=== PATIENT | female | born 1970 | race Caucasian/White ===

== ENCOUNTER 2021-01-11 22:31 | Emergency (ER) | payer BC, SELFPAY ==
--- NOTE | 2021-01-11 22:38 | XR_ITS ---
PROCEDURE INFORMATION: Exam: XR Chest Exam date and time: 01/11/2021 10:38 PM Age: 50 years old Clinical indication: Patient HX: Productive cough, nonsmoker TECHNIQUE: Imaging protocol: XR of the chest. Views: 1 view. Total images: 1 COMPARISON: CR CXR CHEST(2 VIEWS-NOT PORTABLE) 06/29/2015 11:10 AM FINDINGS: Lungs: Normal pulmonary expansion. Pulmonary vasculature grossly normal. Patchy airspace disease in the left mid to basilar region concerning for pneumonia versus atelectasis. Pleural spaces: No pleural effusion. No pneumothorax. Heart/Mediastinum: Heart size normal. No tracheal/mediastinal shift. Bones/joints: No acute osseous abnormalities are identified. Chronic healed left clavicle fracture. IMPRESSION: Patchy pneumonia or atelectasis in the left mid to basilar region.
[2021-01-11 22:39] VITALS: BP 129/65; PULSE 105; RESP 17; TEMP 37.9; O2SAT 98; BMI 34.9
--- NOTE | 2021-01-11 22:39 | HMH.EDGENADL ---
ED Disposition Clinical Impression: Pneumonia Qualifiers: Pneumonia type: due to unspecified organism Laterality: left Lung location: lower lobe of lung Qualified Code(s): J18.9 - Pneumonia, unspecified organism Disposition: Home, Self-Care Condition on Discharge: Fair Instructions: DI for Pneumonia -- Adult Additional Instructions: You have been evaluated for cough. Diagnosed with pneumonia. Pneumonia is on the left side. Please sitting taking Levaquin as prescribed. Take Tylenol and Motrin for pain and fever. Follow-up with your primary care doctor. Return to the emergency department for any new or worsening symptoms, difficulty breathing or other concerns. Prescriptions: predniSONE [Prednisone 20mg Tab] 20 mg PO BID #10 tab Transmission Status: Pending to [facility]/pharmacy #[id number] Referrals: Kathleen Meredith APRN [Primary Care Provider] - Time of Disposition: 00:46 - Critical Care Critical Care Time: No Attestation: On , the high probability of a clinically significant, sudden or life threatening deterioration of the following system(s) required my full and direct attention, intervention and personal management. The time I documented below is in addition to time spent performing reported procedures but includes the following listed in this critical care notation. Medical Decision Making - Medical Records Medical records reviewed: Yes: I reviewed the patient's medical records. - Dayron Inquiry Pt receiving controlled substance: No Vital Signs: 01/11/21 22:39 Temperature 100.2 F H Temperature Source Oral Pulse Rate [Right Brachial] 105 H Respiratory Rate 17 Blood Pressure [Right Arm] 129/65 Blood Pressure Mean [Right Arm] 86 Blood Pressure Source [Right Arm] Automatic Cuff Blood Pressure Position [Right Arm] Sitting 02 Sat by Pulse Oximetry 98 Oxygen Delivery Method Room Air - Lab Data Lab Results 01/12/21 00:20: WBC 10.4, RBC 4.62, Hgb 13.3, Hct 40.8, MCV 88.4, MCH 28.8, MCHC 32.5, RDW 14.1, Plt Count 281, MPV 7.9, Neut % (Auto) 88.9 H, Lymph % (Auto) 5.6 L, O'Brien % (Auto) 3.2, Eos % (Auto) 1.4, Baso % (Auto) 0.9, Neut # (Auto) 9.2 H, Lymph # (Auto) 0.6 L, O'Brien # (Auto) 0.3, Eos # (Auto) 0.2, Baso # (Auto) 0.1, Total Counted 100, Neutrophils % (Manual) 82 H, Band Neutrophils % 10.0 H, Lymphocytes % (Manual) 7 L, Monocytes % (Manual) 1 L, Platelet Estimate Normal, RBC Morphology Normal 01/12/21 00:20: Sodium 138, Potassium 3.3 L, Chloride 99, Carbon Dioxide 28, Anion Gap 14.3, BUN 16, Creatinine 0.90, Estimated Creat Clear 97, Estimated GFR 66, Est GFR ( Amer) 80, Glucose 110 H, Calcium 9.0, Total Bilirubin 0.6, AST 47 H, ALT 27, Alkaline Phosphatase 107, Total Protein 8.3 H, Albumin 4.6, Globulin 3.7 H, Albumin/Globulin Ratio 1.2 Result diagrams: 01/12/21 00:20 01/12/21 00:20 Orders (Tests/Meds): ED MEDICATIONS Discontinued Medications Generic Name Dose Route Start Last Admin Trade Name Freq PRN Reason Stop Dose Admin Acetaminophen 650 mg 01/12/21 00:46 01/12/21 00:50 Acetaminophen 325mg Tab PO 01/12/21 00:47 650 mg ONCE ONE Administration ORDERS Category Date Time Status Rapid PCR Covid and Flu A/B Stat Lab 01/11/21 00:20 Received Medical Decision Narrative: In summary this is a 50-year-old female with history of asthma presenting to the emergency department with cough and chest congestion. Patient clinically stable on arrival. Vital signs within normal limits. Concern for bronchitis, pneumonia, COVID-19. Will obtain CBC, CMP, chest x-ray, COVID test. X-ray concerning for patchy pneumonia in the left mid and lower lung. Laboratory results reassuring. On reassessment patient remains clinically stable in the emergency department. No hypoxia. Counseled to continue taking Levaquin as prescribed. Follow-up with PCP for clearance. Stable for discharge. General Adult HPI - General Stated complaint: SOB Upper Resp congestion Time Seen by Provider
[2021-01-12 00:32] LABS: Coronavirus 19, PCR Not Detected (NotDetected); Influenza A, PCR Not Detected (NotDetected); Influenza B, PCR Not Detected (NotDetected)
[2021-01-12 00:34] LABS: Basophils # 0.1 K/mm3 (0-0.2); Basophils % 0.9 % (0.1-2.0); Eosinophils # 0.2 K/mm3 (0.0-0.4); Eosinophils % 1.4 % (0.1-12.0); Hematocrit 40.8 % (37.0-47.0); Hemoglobin 13.3 g/dL (12.2-16.2); Lymphocytes # 0.6 K/mm3 (0.7-4.5); Lymphocytes % 5.6 % (10-50); Mean Corpuscular HGB Conc 32.5 g/dL (31.8-35.4); Mean Corpuscular Hemoglobin 28.8 pg (27.0-31.2); Mean Corpuscular Volume 88.4 fl (81-99); Mean Platelet Volume 7.9 fl (7.4-10.4); Monocytes # 0.3 K/mm3 (0.1-1.0); Monocytes % 3.2 % (1.7-9.3); Neutrophils # 9.2 K/mm3 (1.8-7.8); Neutrophils % 88.9 % (37.0-80.0); Platelet Count 281 K/mm3 (142-424); Red Blood Count 4.62 M/mm3 (4.20-5.40); Red Cell Distribution Width 14.1 % (11.5-17.5); White Blood Count 10.4 K/mm3 (4.8-10.8)
[2021-01-12 00:39] LABS: Chloride 99 mmol/L (98-107); Sodium 138 mmol/L (136-145)
[2021-01-12 00:40] LABS: MANUAL DIFFERENTIAL MANUAL DIFFERENTIAL (MANUAL DIFF); Potassium 3.3 mmoL/L (3.5-5.1)
[2021-01-12 00:42] LABS: Alanine Aminotransferase 27 U/L (12-78); Alkaline Phosphatase 107 U/L (38-126); Anion Gap 14.3 mEq/L (5-15); Aspartate Amino Transferase 47 U/L (14-36); Bilirubin,Total 0.6 mg/dl (0.2-1.3); Blood Urea Nitrogen 16 mg/dl (7-17); Carbon Dioxide 28 mmol/L (22.0-30.0); Creatinine Clearance Estimated 97 mL/min (50-200); Estimated Glomerular Filt Rate 66 ml/min (>60); GFR (African American) 80 ML/MIN (>60)
[2021-01-12 00:43] LABS: Albumin Level 4.6 g/dl (3.5-5.0); Albumin/Globulin Ratio 1.2 (1.1-1.8); Globulin 3.7 g/dL (1.3-3.2); Glucose 110 mg/dl (74-100); Total Protein,Serum 8.3 g/dl (6.3-8.2)
[2021-01-12 00:47] LABS: Lymphocytes % 7 % (10-50); Monocytes % 1 % (2-9); Neutrophils % 82 % (42-76); Total Cells Counted 100
[2021-01-12 00:48] LABS: Platelet Estimate Normal; RBC Morphology Normal
[2021-01-12 01:26] VITALS: BP 120/73; PULSE 95; RESP 16; TEMP 37.2; O2SAT 98
== END 2021-01-12 01:27 | disposition home or self-care (01) ==
PROVIDERS: Emergency Provider Emergency Medicine; PCP Nurse Practitioner
DX: J18.9 Pneumonia, unspecified organism (principal)
CPT/HCPCS: 71045; 80053; 85007; 85025; 99283; J2405; U0003

== ENCOUNTER → 2021-08-01 08:27 | Outpatient (CLI) | payer BC, SELFPAY ==
--- NOTE | 2021-08-01 08:28 | MM_ITS ---
PROCEDURE INFORMATION: Exam: MG Bilateral Screening 3D Mammography Exam date and time: 08/01/2021 8:28 AM Age: 51 years old Clinical indication: Screening mammogram TECHNIQUE: Imaging protocol: Bilateral Screening tomosynthesis and 2D mammography including computer-aided detection (CAD) when performed. COMPARISON: 1. MG DMDXUAVR DIG MAMM-DX UNI A/VW-RT W/CAD 01/13/2017 1:12 PM 2. MG DMSB DIG MAMM-SCREEN MARYCRUZ W/CAD 01/05/2017 9:59 AM 3. MG DMDXUL DIG MAMM-DX UNI-LT 03/01/2015 3:18 PM 4. MG DMDXUAVL DIG MAMM-DX UNI ADD VIEWS-LT 08/11/2014 1:17 PM FINDINGS: MAMMOGRAPHY: Breast composition: There are scattered areas of fibroglandular density. Mass: None. Architectural distortion: No new or suspicious architectural distortion. Calcifications: No new or suspicious calcifications are present Asymmetric density: No new or suspicious asymmetric density is present Skin thickening: None. Axillary adenopathy: None. IMPRESSION: No mammographic evidence of malignancy. Recommend annual screening mammography unless otherwise clinically indicated. ASSESSMENT: BI-RADS category 1: Negative
[2021-08-01 09:14] LABS: Basophils % 0.5 % (0.1-2.0); Eosinophils # 0.1 K/mm3 (0.0-0.4); Eosinophils % 2.5 % (0.1-12.0); Hematocrit 37.4 % (37.0-47.0); Lymphocytes # 1.2 K/mm3 (0.7-4.5); Lymphocytes % 21.8 % (10-50); Mean Corpuscular HGB Conc 32.1 g/dL (31.8-35.4); Mean Corpuscular Hemoglobin 28.5 pg (27.0-31.2); Mean Corpuscular Volume 88.8 fl (81-99); Mean Platelet Volume 7.5 fl (7.4-10.4); Monocytes # 0.2 K/mm3 (0.1-1.0); Monocytes % 4.4 % (1.7-9.3); Neutrophils # 3.8 K/mm3 (1.8-7.8); Neutrophils % 70.9 % (37.0-80.0); Platelet Count 321 K/mm3 (142-424); Red Blood Count 4.22 M/mm3 (4.20-5.40); Red Cell Distribution Width 12.9 % (11.5-17.5); White Blood Count 5.3 K/mm3 (4.8-10.8)
[2021-08-01 10:03] LABS: Chloride 104 mmol/L (98-107); Sodium 135 mmol/L (136-145)
[2021-08-01 10:05] LABS: Blood Urea Nitrogen 19 mg/dl (7-17); Estimated Glomerular Filt Rate 75 ml/min (>60); GFR (African American) 91 ML/MIN (>60)
[2021-08-01 10:06] LABS: Alanine Aminotransferase 14 U/L (12-78); Alkaline Phosphatase 104 U/L (38-126); Aspartate Amino Transferase 28 U/L (14-36); Bilirubin,Total 0.4 mg/dl (0.2-1.3); Calcium 8.1 mg/dl (8.4-10.2); Carbon Dioxide 27 mmol/L (22.0-30.0); Glucose 95 mg/dl (74-100); HDL Cholesterol 45 mg/dl (40-60); Total Protein,Serum 6.8 g/dl (6.3-8.2); Triglycerides 71 mg/dl (30-150); VLDL Cholesterol 14 mg/dL (0-40)
[2021-08-01 10:22] LABS: Triiodothryronine (T3) Uptake 29 % (23.5-40.5)
[2021-08-01 10:23] LABS: Free Thyroxine Index 2.4 ug/dL (5.93-13.13); T4 (Thyroxine) 8.4 ug/dl (5.53-11.0)
[2021-08-01 10:36] LABS: Thyroid Stimulating Hormone 1.89 uIU/mL (0.465-4.68)
[2021-08-01 11:43] LABS: Albumin Level 3.9 g/dl (3.5-5.0); Albumin/Globulin Ratio 1.3 (1.1-1.8); Chol/HDL Ratio 3.4 (1-3.5); Cholesterol 155 mg/dl (140-200); Globulin 2.9 g/dL (1.3-3.2)
[2021-08-02 13:19] LABS: Estradiol 26.7 pg/mL (.); FSH 61.4 mIU/mL (.); LH 44.3 mIU/mL (.)
== END ==
PROVIDERS: PCP Pediatrics; Visit Provider Nurse Practitioner Obstetrics & Gynecology
DX: Z01.419 Encounter for gynecological examination (general) (routine) without abnormal findings (principal); Z12.31 Encounter for screening mammogram for malignant neoplasm of breast; R53.82 Chronic fatigue, unspecified
CPT/HCPCS: 36415; 77063; 77067; 80053; 80061; 82670; 83001; 83002; 84436; 84443; 84479; 85025

== ENCOUNTER → 2021-09-25 09:46 | Outpatient (CLI) | payer BC, SELFPAY ==
[2021-09-25 10:19] LABS: Basophils # 0.1 K/mm3 (0-0.2); Eosinophils # 0.1 K/mm3 (0.0-0.4); Eosinophils % 1.4 % (0.1-12.0); Hematocrit 35.3 % (37.0-47.0); Hemoglobin 11.4 g/dL (12.2-16.2); Lymphocytes # 1.5 K/mm3 (0.7-4.5); Lymphocytes % 20.2 % (10-50); Mean Corpuscular HGB Conc 32.4 g/dL (31.8-35.4); Mean Corpuscular Hemoglobin 28.1 pg (27.0-31.2); Mean Corpuscular Volume 86.8 fl (81-99); Mean Platelet Volume 7.9 fl (7.4-10.4); Monocytes # 0.4 K/mm3 (0.1-1.0); Monocytes % 4.7 % (1.7-9.3); Neutrophils # 5.5 K/mm3 (1.8-7.8); Neutrophils % 72.7 % (37.0-80.0); Platelet Count 299 K/mm3 (142-424); Red Blood Count 4.07 M/mm3 (4.20-5.40); Red Cell Distribution Width 15.8 % (11.5-17.5); White Blood Count 7.6 K/mm3 (4.8-10.8)
[2021-09-25 10:38] LABS: Chloride 107 mmol/L (98-107); Potassium 4.3 mmoL/L (3.5-5.1)
[2021-09-25 10:39] LABS: Sodium 139 mmol/L (136-145)
[2021-09-25 10:41] LABS: Blood Urea Nitrogen 21 mg/dl (7-17); Estimated Glomerular Filt Rate 47 ml/min (>60); GFR (African American) 57 ML/MIN (>60)
[2021-09-25 10:42] LABS: Glucose 95 mg/dl (74-100)
[2021-09-25 10:43] LABS: Anion Gap 9.3 mEq/L (5-15); Calcium 8.5 mg/dl (8.4-10.2); Carbon Dioxide 27 mmol/L (22.0-30.0)
== END ==
PROVIDERS: Visit Provider Nurse Practitioner Obstetrics & Gynecology
DX: Z01.818 Encounter for other preprocedural examination (principal); Z11.52 Encounter for screening for COVID-19; R87.619 Unspecified abnormal cytological findings in specimens from cervix uteri
CPT/HCPCS: 36415; 80048; 85025; C9803; U0003; U0005

== ENCOUNTER 2021-09-27 06:07 | Day surgery (SDC) | payer BC, SELFPAY ==
[2021-09-25 09:18] VITALS: BMI 33.1
[2021-09-27] VITALS (13 sets, daily range): BP systolic 111–134; BP diastolic 66–92; PULSE 72–124; RESP 16–22; TEMP 36.2–36.8; O2SAT 95–100
--- NOTE | 2021-09-27 07:10 | P.PN_ITS ---
[facility] Anesthesia Checklist - Patient Identification Patient Identification: Arm Band - Structural Data Admitted From: Home Planned Operative Procedure/s: Hyst/D & C Consent for Planned Operative Procedure(s) Verified: Yes - NPO Status Verified Time NPO: 00:00 - Additional verifications Anesthesia Reactions: No (nausea) Hx Blood Transfusions: No Blood Transfusion Reaction: No - Airway Assessment C-Spine Mobility Assessed: Yes TMJ Mobility Assessed: Yes Dentition: Dentures-good fit - Neurological Assessment Level of Consciousness: Awake Hx Seizures: No Numbness or tingling in extremities: No - Anesthesia Plan Anesthesia Risk discussed: Yes Anesthesia Plan: Verified ASA Class: II Anesthesia Type: General [facility] History I have reviewed the patient's past medical history: Yes Medical History: Reports:: Diabetes Mellitus Type 2, Hypertension Denies:: Cancer, Diabetes Mellitus Type 1, Internal Pacemaker, MRSA, Seizures *Have you ever received a pneumonia vaccine?: No *Have you received a flu vaccine this season?: No Other Medical History: Denies: Blood Transfusion Reaction Anesthesia experience/problems:: PONV Laterality Cases: Bilateral: Carpal Tunnel Release Other Surgeries: Yes: Other. No: Pacemaker Amputation: No Fractures: No - *Social History Last grade of school completed: High school graduate Smoking Status: Never smoker Alcohol Intake: never Substance Use Type: denies use *Occupational Status:: employed Housing: house Household Members: spouse, family *Travel in the last 8 weeks: None Family Hx:: No significant family history
--- NOTE | 2021-09-27 08:11 | P.OP_ITS ---
Date of procedure: 09/27/21 Pre-op Diagnosis:: Atypical glandular cells Post-op Diagnosis:: Atypical glandular cells Procedure performed:: Hysteroscopy, dilation and curettage, endocervical curettage, cone biopsy Surgeon:: Jeffrey Ramirez MD CASSEROLE PREPARER:: Prashant Fleming Anesthesia: LMA Estimated blood loss (mL): 50 Clinical Note:: She is a 51-year-old lady who had a recent Pap smear that showed atypical glandular cells. As result of that she was offered cone biopsy, D&C, endocervical curettage and hysteroscopy. Operative findings:: She had an anteverted uterus that had an atrophic appearing endometrial cavity. Both tubal ostia were seen and appeared normal. There were no obvious lesions on the cervix. Operative note:: She was taken the operating room where LMA anesthesia was found be adequate. She is prepped draped normal sterile fashion lithotomy position. Weighted speculum is placed in the vagina and the antilipid the cervix was grasped with a tenaculum. The cervix was grasped with a single-tooth tenaculum and the cervix was dilated to approximately 7 mm. We then inserted a hysteroscope into the uterine cavity and the findings were as previously dictated. I then performed a gentle curettage. This was followed by an endocervical curettage with a small curette. I then injected approximately 20 cc of 1% Xylocaine with epinephrine circumferentially about the cervix. I then made a circular incision about the cervical os approximately 1-1/2 cm wide. I then removed a cylindrical piece of tissue from the cervix. This was sent to pathology. I then used interrupted 2-0 Vicryl suture from outside insight inside outside in for corners around the cervix for hemostasis. I then placed a small amount of Monsel's solution into the cervical defect. She tolerated procedure well and was taken to recovery room in excellent condition. All sponge, instrument and needle counts were correct. The estimated blood loss was approximately 50 cc. Condition: stable Disposition: PACU Specimens:: Endometrial curettings, endocervical curettings, cone biopsy Complications:: None
--- NOTE | 2021-09-27 08:17 | P.PN_ITS ---
[facility] Anesthesia Record Part I Intake, IV Amount: 500 Estimated blood loss (mL): 50 Urine output (mL): 0 Blood Pressure: 133/92 SaO2: 100 Pulse Rate: 124 Respiratory Rate: 21 Temperature: 98 F Patient is:: Drowsy Stable to PACU at:: 08:13
[2021-09-27 08:36] LABS: POC Glucose,Bedside 114 (70-110)
--- NOTE | 2021-09-30 07:18 | HMH.ANESII ---
[facility] Anesthesia Record Part II Discharge Time: 08:50 Destination: Surgical Day Care (OP Surgery) PACU nurse assessment reviewed?: Yes Patient Condition:: Good Anesthesia Complications:: None Swallowing reflex intact?: Yes Cyanosis?: No Blood Pressure: 125/71 Pulse Rate: 97 Temperature: 98.2 F Mental Status: Alert & Oriented Pain level:: 7 Nausea and/or vomitting:: None Intake, IV Amount: 0
[2021-09-30 07:19] VITALS: BP 125/71; PULSE 97; TEMP 36.8
[2022-03-13 10:59] LABS: POC Glucose,Bedside 79 (70-110)
== END 2021-09-27 09:50 | disposition home or self-care (01) ==
LOC: OR 06:08
PROVIDERS: PCP Pediatrics; Visit Provider Nurse Practitioner Obstetrics & Gynecology
PROC: 0UDB8ZZ Extraction of Endometrium, Via Natural or Artificial Opening Endoscopic (ICD-10-PCS; CPT 58558; principal; 2021-09-27 07:30)
DX: R87.618 Other abnormal cytological findings on specimens from cervix uteri (principal); E11.9 Type 2 diabetes mellitus without complications; I10 Essential (primary) hypertension; Z79.899 Other long term (current) drug therapy
CPT/HCPCS: 57520; 82962; 96374; J2405

== ENCOUNTER 2025-01-22 19:57 | Emergency (ER) | payer BC, SELFPAY ==
--- OUTSIDE RECORDS SUMMARY | 2021-11-20 08:16 | XMS_ITS | Continuity of Care Document ---
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 Name Role Phone Toy Mcgowan MD Unavailable Unavailable Allergies, Adverse Reactions, Alerts Substance Reaction Status Criticality No Known Allergies Active No Inform ation Medications Medication Instructions Dosage Effective Dates (start - stop) Status Comments cyclobenzaprine 10 mg tablet take 1 tablet by oral route 3 times every day 10 MG - Active Medrol (Ludwin) 4 mg tablets in a dose pack Per package instructions - Active oxaprozin 600 mg tablet - Active loratadine 10 mg tablet - Active omeprazole 40 mg capsule,delayed release - Active estradiol 1 mg tablet - Active Orsythia 0.1 mg-20 mcg tablet - Active triamterene 37.5 mg-hydrochlorothiazide 25 mg capsule - Active metformin 500 mg tablet - Active Procedures Procedure Date Office/outpatient visit,est, mod 2021 X-ray exam lwr spine, min 4 views Njx interlaminar lmbr/sac Methylprednisolone 40 MG inj Inject, spine, lumbar/sacral Fluoroscopic Guidance, Spine Injection D Methylprednisolone 40 MG inj Inject foramin, lumb/sacral, single Methylprednisolone 40 MG inj LOCM 300-399MG/ML IODINE,1ML Inject foramin, lumb/sacral, single Methylprednisolone 40 MG inj LOCM 300-399MG/ML IODINE,1ML Office/outpatient visit,est, mod 2015 Office consultation, moderate 6 Inject foramin, lumb/sacral, single Methylprednisolone 40 MG inj LOCM 300-399MG/ML IODINE,1ML Office/outpatient visit,est, mod 2015 Office/outpatient visit,est, mod 2015 Office/outpatient visit,est, mod 2015 X-ray exam lwr spine, min 4 views Advance Directives Directive Yes / No Effective Date File Name No Information Encounters Encounter Description Practice Location Reason(s) For Visit Diagnoses Date Provider Providers Copied on Encounter [facility] [address], [facility], tel:[phone] [facility] No Information 2 Juan M Yeager. [address] [place], [place], [facility], . tel:[phone] Referring Provider: Margarito Fry, [address] [place] [address], [facility]. tel:[phone] Office/outpa tient visit,est, mod [facility] [address], [facility] [place], tel:[phone] [address] [place] [address] Radiculopathy, cervical regionOther intervertebral disc degeneration, lumbosacral region 2 Juan M Yeager. [address] [place], [place], [facility], . tel:[phone] Referring Provider: Margarito Fry, [address] [place] [address], [facility]. tel:[phone] [facility] [address], [facility] [place], tel:[phone] [address] [place] [address] No Information 7 Gregorio Rankin. [address] [place], [address], [place]. tel:[phone] [facility], [address] [place] [address], [facility], tel:[phone] [facility] No Information 6 Kruer Chucho. [address] [place], [address], [place]. tel:[phone] [facility] [address], [facility] [place], tel:[phone] [facility] No Information 6 Kruer Chucho. [address] [place], [address], [place]. tel:[phone] [facility], [address] [place] [address], [facility], tel:[phone] [address] [place] [address] No Information 6 Kruer Chucho. [address] [place], [address], [place]. tel:[phone] Office/outpa tient visit,est, mod [facility] [address], [facility] [place], [place] tel:[phone] [address] [place] [address] No Information 6 Kruer Chucho. [address] [place], [address], [place]. tel:[phone] Office consultation , moderate [facility] [address], [facility], tel:[phone] [address] [place] [address] lumbar spine (chief complaint) Low back painRadiculopa thy, lumbar regionInterver tebral disc disorder w/ radiculopathy of lumbar region 6 Kruer Chucho. [address] [place], [address], [place]. tel:[phone] Referring Provider: Margarito Fry, [address], [place], [facility]. tel:[phone] Office/outpa tient visit,est, mod [facility], [address] [place] [address], [facility], tel:[phone] [facility] No Information 3 6 Hong Pimentel. [address] [place], [place], [facility], . tel:[phone] Referring Provider: Toy Mcgowan, [address] [place], [place], [facility]. tel:[phone] [facility]outpa [facility]ient visit,est, mod [facility], [address] [place] [address], [facility], tel:[phone] [facility] No Information 1 0 6 Juan M Yeager. [address] [place] [address], [facility], . tel:[phone] Office/outpa tient visit,[facility], [address] [place] [address], [facility], tel:[phone] [address] [place] [address] No Information 0 3 6 Juan M Yeager. [address] [place] [address], [facility], . tel:[phone] Family History Family Member Type Diagnosis Age At Onset Brother Problem (finding) Family history of Hyper lipidemia Brother Problem (finding) Hypertension Problem (finding) Family history of diabe lesli Mother Problem (finding) Family history of Glauc kari Problem (finding) Family history of Thyro id disorder Problem (finding) Family history of Cance r, unknown Father Problem (finding) Cancer Problem (finding) Family history of glauc kari Problem (finding) Family history of hyper tension Problem (finding) Family history of Heart disease Payers Payer name Insurance type Covered green party ID Authoriza tion(s) No Information Social History Type Description Quantity Date Captured Comments Sex Female Smoking Status No Information Chief Complaint And Reason For Visit No Information Reason For Referral Reason For Referral No Information Plan Of Treatment Date Type Action Status Future Order: Radiology Order MR I Lumbar Spine WO Contrast ([id number]), Ordered on: Ordered Future Order: Radiology Order MR I Cervical Spine WO Contrast ([id number]), Ordered on: Ordered Future Order: Radiology Order MR I Lumbar Spine W/WO Contrast ([id number]), Sent on: Sent History Of Present Illness Encounter Date Complaint History Of Prese nt Illness lumbar spine Functional Status Date Functional Assessmen t No Information Instructions Date Instruction Additional Infor mation No Information Assessments Type Assessment Date No Information Patient Care Teams Name Effective Dates (start - stop) Status Members No Information
--- OUTSIDE RECORDS SUMMARY | 2025-01-16 11:00 | XMS_ITS | Encounter Summary ---
Author Organization [place] [address] Care Team Providers Care Hotel Maid Name Role Phone Julian Cam MD Primary Care Provider [phone] Nicolas Nagel MD Unavailable [phone] Reason for Referral * MRI/CAT Scan (Routine) - Pending Review Specialty Diagnoses / Procedures Referred By Contac t Referred To Contact Radiology Diagnoses Lumbar spondylosis Vertebrogenic pain Procedures MRI LUMBAR SPINE WO CONTRAST INTRACEPT CANDIDATE Coty Arechiga APRN [address] [place] [address] Phone: tel: fax: Referral ID Status Reason Start Date Expiration Date V isits Requested Visits Authorized [id number] Pending Review 01/16/2025 01/16/2026 1 1 Reason for Visit * Reason Comments Follow-up Back Pain lower Encounter Details Date Type Department Care Team (Latest Contact Info) Description 01/16/2025 11:00 AM EDT Office Visit [facility] [address] [place] [address] Coty Arechiga APRN [address] [phone] Vertebrogenic pain (Primary Dx); Lumbar spondylosis Social History Tobacco Use Types Packs/Day Years Used Date Smoking Tobacco: Never Smokeless Tobacco: Never Tobacco Cessation:Counseling Given: Not Answered Alcohol Use Standard Drinks/Week Comments No 0 (1 standard drink = 0.6 oz pur e alcohol) Overall Financial Resource Strain (CARDIA) Answe r Date Recorded How hard is it for you to pa y for the very basics like food, housing, medical care, and heating? Not very hard 08/27/2022 PHQ-2 Answer Date Recorded PHQ-2 Total Score 0 02/09/2024 [facility] - Occupational Stress Questionnaire Answer Date Recorded Do you feel stress - tense, restless, nervous, or anxious, or unable to sleep at night because your mind is troubled all the time - these days? Only a little 08/27/2022 Exercise Vital Sign Answer Date Recorde d On average, how many days pe r week do you engage in moderate to strenuous exercise (like a brisk walk)? 0 days 08/27/2022 On average, how many minutes do you engage in exercise at this level? 0 min 08/27/2022 Hunger Vital Sign Answer Date Recorded Within the past 12 months, y ou worried that your food would run out before you got the money to buy more. Never true 08/28/19 23 Within the past 12 months, t he food you bought just didn't last and you didn't have money to get more. Never true 08/27/2022 PRAPARE - Transportation Answer Date Re corded In the past 12 months, has l ack of transportation kept you from medical appointments or from getting medications? No 08/13 In the past 12 months, has l ack of transportation kept you from meetings, work, or from getting things needed for daily living? No 08/27/2022 Housing Stability Vital Sign Answer Efren e Recorded In the last 12 months, was t here a time when you were not able to pay the mortgage or rent on time? No 08/27/2022 In the last 12 months, how many places have you lived? 1 08/27/2022 In the last 12 months, was t here a time when you did not have a steady place to sleep or slept in a senior care (including now)? No 08/27/2022 Sexually Active Control Partners Comments Not Currently Comments No Sex and Gender Information Value Date Recorded Sex Assigned at Not on file Legal Sex Female 10:01 PM EDT Gender Identity Not on file Sexual Orientation Not on file documented as of this encounter Last Filed Vital Signs Vital Sign Reading Time Taken Comments Blood Pressure - - Pulse 95 01/16/2025 10:59 AM EDT Temperature - - Respiratory Rate - - Oxygen Saturation 97% 01/16/2025 10:59 AM EDT Inhaled Oxygen Concentration - - Weight 75.8 kg (167 lb) 01/16/2025 10:59 AM EDT Height - - Body Mass Index 34.9 08/12/2024 1:37 PM EST documented in this encounter Functional Status * Is the person deaf or does he/she have serious difficulty hearing? Answer Date of Assessment Author No 09/09/2022 1:56 PM EDT Kathryn Morton CCMA * Is the person blind or does he/she have serious difficulty seeing even when wearing glasses? Answer Date of Assessment Author No 09/09/2022 1:56 PM EDT Kathryn Morton CCMA * Does this person have serious difficulty walking or climbing stairs? Answer Date of Assessment Author No 09/09/2022 1:56 PM EDT Kathryn Morton CCMA * Does this person have difficulty dressing or bathing? Answer Date of Assessment Author No 09/09/2022 1:56 PM EDT Katelynn Morton CCMA * Because of a physical, mental or emotional condition, does this person have difficulty doing errands alone such as visiting a doctor's office or shopping? Answer Date of Assessment Author No 09/09/2022 1:56 PM EDT Kathryn Morton CCMA documented as of this encounter Mental Status * Because of a physical, mental or emotional condition, does this person have serious difficulty concentrating, remembering or making decisions? Answer Entry Date Author No 09/09/2022 1:56 PM Kathryn Skelton CCMA documented in this encounter Ordered Prescriptions Prescription Sig Dispense Quantity Refills Last Filled Start Date End Date diclofenac (VOLTAREN) 75 mg Oral Tablet, Delayed Release (E.C.) Take 1 Tablet by mouth 2 times daily as needed for Pain for up to 30 days. 60 Tablet 2 01/16/2025 02/15/2025 documented in this encounter Progress Notes * Coty ArechigaOLGA - 01/16/2025 11:00 AM EDT Images from the original note were not included. Subjective Subjective: Patient ID: Maite Loco is a 54 y.o. female who presents today for Chief Complaint Patient presents with Follow-up Back Pain lower HPI: Maite Loco is a 54 y.o. female who presents for follow-up evaluation regarding their pain. Symptoms are better since last visit. Since last visit, the patient underwent Lumbar medial branch radiofrequency ablation (RFA). No relief for 4-5 weeks. Now with about 25%. Has SCS implanted 10/2023 which does help and plans to contact [facility] for adjustment. 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 Her pain is located in her low back and radiating into bilateral buttock. Worsening with bending, twisting, prolonged standing. H/O L5-S1 laminectomy in 2012. She started mobic without any relief, taking tylenol prn Characterization of Primary Pain: Location of Pain: Low-back - bilateral and Buttock - bilateral Pain Ratin/10 on NRS Quality: aching and throbbing Temporal Profile: constant with intermittent exacerbations Referral Pattern: Pain radiates to the right and left buttocks Exacerbating Factors: increased activity, activities of daily living, prolonged standing, and walking Relieving Factors: rest and injections SCS Associated Symptoms: Patient denies any red flag symptoms such as urinary/bowel incontinence, progressive weakness in the extremities, and/or saddle anesthesia. The patient's current medication regimen does not relieve their pain. No apparent side effects are noted with current medication regimen. Review of Systems Constitutional: Positive for activity change, chills and fatigue. Negative for appetite change, diaphoresis and fever. HENT: Positive for dental problem, ear discharge, ear pain, hearing loss, mouth sores and trouble swallowing. Negative for congestion, drooling, facial swelling, nosebleeds, postnasal drip, rhinorrhea, sinus pressure, sore throat, tinnitus and voice change. Respiratory: Negative for cough, chest tightness, shortness of breath and wheezing. Cardiovascular: Positive for palpitations. Negative for chest pain and leg swelling. Gastrointestinal: Positive for abdominal pain and diarrhea. Negative for constipation, nausea and vomiting. Endocrine: Negative for polydipsia. Genitourinary: Positive for flank pain, frequency and urgency. Negative for dysuria and hematuria. Musculoskeletal: Positive for back pain, joint swelling, myalgias and neck pain. Skin: Negative for color change and rash. Allergic/Immunologic: Positive for environmental allergies. Neurological: Positive for dizziness, tremors, weakness and numbness. Negative for speech difficulty and headaches. Hematological: Bruises/bleeds easily. Psychiatric/Behavioral: Positive for dysphoric mood. Negative for hallucinations, sleep disturbanceand suicidal ideas. The patient is nervous/anxious. All other systems reviewed and are negative. Past Medical History: Diagnosis Date Allergic rhinitis, cause unspecified Anemia Asthma no inhaler Chronic kidney disease Dietary counseling and surveillance 04/23/2022 Gall bladder stones GERD (gastroesophageal reflux disease) Heart murmur Heartburn History of chicken pox Hyperlipidemia Hypertension Irritable bowel syndrome Kidney stones Leg cramps Motion sickness Osteoarthrosis, unspecified whether generalized or localized, unspecified site hands, knees, back Overweight Postoperative nausea and vomiting Snoring Swelling of both hands Swelling of lower extremity Past Surgical History: Procedure Laterality Date BLADDER SURGERY bladder sling CARPAL TUNNEL RELEASE Bilateral 12/14/2018 BILATERAL CARPAL TUNNEL RELEASE; Surgeon: Keyshawn Dobbins MD; Location: [facility]; Service: Hand CHOLECYSTECTOMY 1996 IR 2 LEVEL BILATERAL MEDIAL BRANCH BLOCK LUM SAC 01/10/2021 IR 2 LEVEL BILATERAL MEDIAL BRANCH BLOCK LUM SAC 01/10/2021 [facility] IR 2 LEVEL BILATERAL MEDIAL BRANCH BLOCK LUM SAC 02/28/2021 IR 2 LEVEL BILATERAL MEDIAL BRANCH BLOCK LUM SAC 02/28/2021 Osorio Fitzgerald MD [facility] LUMBAR LAMINECTOMY Right 03/20/2014 RIGHT L5/S1 DECOMPRESSION WITH DISCECTOMY OF CAUDALLY MIGRATED FRAGMENT ; Surgeon: Barrera Shen MD; Location: [facility]; Service: Neurosurgery SPINE SURGERY N/A 11/11/2023 SPINAL CORD STIMULATOR Perm; Surgeon: Osorio Fitzgerald MD; Location: [facility]; Service: Spine TUBAL LIGATION Family History Problem Relation Age of Onset Anesth Problems Mother nausea Thyroid Disease Mother Heart Disease Mother A-Fib Anesth Problems Father nausea Elevated Lipids Father Heart Attack Father Cancer Father Heart Disease Father heart failure Anxiety Disorder Sister Depression Sister Diabetes Sister High Blood Pressure Sister High Cholesterol Sister Diabetes Brother High Blood Pressure Brother High Cholesterol Brother Arthritis Brother Other Brother gout Arthritis Brother High Cholesterol Brother High Blood Pressure Brother Diabetes Brother Bipolar Disorder Daughter Rheum Arthritis Son Liver Disease Paternal Uncle Cirrhosis Paternal Uncle Colon Cancer Neg Hx Esophageal Cancer Neg Hx Liver Cancer Neg Hx Rectal Cancer Neg Hx Stomach Cancer Neg Hx Social History Socioeconomic History Marital status: Spouse name: Not on file Number of children: Not on file Years of education: Not on file Highest education level: Not on file Occupational History Not on file Tobacco Use Smoking status: Never Smokeless tobacco: Never Vaping Use Vaping status: Never Used Substance and Sexual Activity Alcohol use: No Drug use: Never Sexual activity: Not Currently Other Topics Concern Not on file Social History Narrative Not on file Social Drivers of Health Financial Resource Strain: Low Risk (08/27/2022) Overall Financial Resource Strain (CARDIA) Difficulty of Paying Living Expenses: Not very hard Food Insecurity: No Food Insecurity (08/27/2022) Hunger Vital Sign Worried About Running Out of Food in the Last Year: Never true Ran Out of Food in the Last Year: Never true Transportation Needs: No Transportation Needs (08/27/2022) PRAPARE - Transportation Lack of Transportation (Medical): No Lack of Transportation (Non-Medical): No Physical Activity: Inactive (08/27/2022) Exercise Vital Sign Days of Exercise per Week: 0 days Minutes of Exercise per Session: 0 min Stress: No Stress Concern Present (08/27/2022) [facility] - Occupational Stress Questionnaire Feeling of Stress : Only a little Social Connections: Not on file Intimate Partner Violence: Not on file Housing Stability: Low Risk (08/27/2022) Housing Stability Vital Sign Unable to Pay for Housing in the Last Year: No Number of Places Lived in the Last Year: 1 Unstable Housing in the Last Year: No Patients past medical, surgical, family and social histories were reviewed and updated. There were no changes except as noted. Current Outpatient Medications: azelastine (ASTELIN) 137 mcg (0.1 %) Nasl [place], Non-Aerosol, 1 [place] in each nostril 2 times daily., Disp: , Rfl: busPIRone (BUSPAR) 10 mg Oral Tablet, Take 1 Tablet by mouth 2 times daily., Disp: 60 Tablet, Rfl: 0 celecoxib (CELEBREX) 200 mg Oral Capsule, Take 1 Capsule by mouth 2 times daily for 90 days., Disp:60 Capsule, Rfl: 2 cetirizine (ZYRTEC) 10 mg Oral Tablet, Take 1 Tablet by mouth daily., Disp: 30 Tablet, Rfl: 5 cyanocobalamin, vitamin B-12, (VITAMIN B-12 ORAL), Take by mouth., Disp: , Rfl: desvenlafaxine succinate (PRISTIQ) 50 mg Oral Tablet Sustained Release 24 hr, Take 1 Tablet by mouth daily. (Patient not taking: Reported on 11/09/2024), Disp: 90 Tablet, Rfl: 3 dicyclomine (BENTYL) 20 mg Oral Tablet, Take 1 Tablet by mouth 4 times daily (before meals and nightly)., Disp: 60 Tablet, Rfl: 2 estradioL (ESTRACE) 1 mg Oral Tablet, Take 1 Tablet by mouth daily., Disp: 30 Tablet, Rfl: 0 FLUoxetine (PROZAC) 40 mg Oral Capsule, Take 1 Capsule by mouth 2 times daily., Disp: 180 Capsule, Rfl: 3 fluticasone (FLONASE) 50 mcg/actuation Nasl [place], Suspension, 2 Sprays by Nasal route daily., Disp: 1 Bottle, Rfl: 6 hydroCHLOROthiazide 25 mg Oral Tablet, Take 1 Tablet by mouth daily., Disp: 30 Tablet, Rfl: 0 hydrocortisone 2.5 % Top Ointment, Apply topically., Disp: , Rfl: ketoconazole (NIZORAL) 2 % Top Cream, Apply topically daily., Disp: , Rfl: lactobacillus combination no.4 (PROBIOTIC) 3 billion cell Oral Capsule, Take 1 Capful by mouth nightly., Disp: 90 Capsule, Rfl: 3 lisinopriL (PRINIVIL;ZESTRIL) 5 mg Oral Tablet, Take 1 Tablet by mouth daily for 360 days., Disp: 90 Tablet, Rfl: 3 medroxyPROGESTERone (PROVERA) 2.5 mg Oral Tablet, Take 1 Tablet by mouth daily., Disp: 90 Tablet, Rfl: 1 pantoprazole (PROTONIX) 40 mg Oral Tablet, Delayed Release (E.C.), Take 1 Tablet by mouth 2 times daily., Disp: 200 Tablet, Rfl: 2 rosuvastatin (CRESTOR) 20 mg Oral Tablet, Take 1 Tablet by mouth nightly., Disp: 90 Tablet, Rfl: 3 semaglutide 2 mg/dose (8 mg/3 mL) SubQ Pen Injector, Inject 2 mg under the skin once a week. Indications: type 2 diabetes mellitus, Disp: 3 mL, Rfl: 2 traZODone (DESYREL) 50 mg Oral Tablet, Take 1 Tablet by mouth nightly as needed. for sleep, Disp: 30 Tablet, Rfl: 2 triamcinolone (NASACORT) 55 mcg Nasl Aerosol, Har[place], 1 [place] by Nasal route 2 times daily., Disp: 16 mL, Rfl: 5 Objective Objective: There were no vitals filed for this visit.There is no height or weight on file to calculate BMI. Physical Exam Vitals reviewed. Constitutional: Appearance: Normal appearance. HENT: Head: Normocephalic. Cardiovascular: Rate and Rhythm: Normal rate. Pulses: Normal pulses. Pulmonary: Effort: Pulmonary effort is normal. Musculoskeletal: General: Tenderness present. Cervical back: Normal range of motion. Lumbar back: Tenderness present. Back: Legs: Skin: General: Skin is warm and dry. Neurological: Mental Status: She is alert and oriented to person, place, and time. Psychiatric: Mood and Affect: Mood normal. Behavior: Behavior normal. Thought Content: Thought content normal. Judgment: Judgment normal. Image Review: Results for orders placed during the hospital encounter of 05/06/23 MRI LUMBAR SPINE WO CONTRAST Narrative MRI LUMBAR SPINE WITHOUT CONTRAST, 05/06/2023 9:51 AM CLINICAL HISTORY: M54.42-Lumbago with sciatica, left kbwe-SMI-12-CM M54.41-Lumbago with sciatica, right ywvy-LKV-37-CM G89.29-Other chronic tmrj-MAM-11-CM. COMPARISON: 11/20/2015 PROCEDURE COMMENTS: Multiplanar multiecho MR imaging of the lumbar spine without contrast. FINDINGS: No acute spine fracture. Normal conus position and signal. Marrow signal: No significant marrow signal alteration or replacement. Level by level analysis: L1-L2: Unremarkable. L2-L3: Unremarkable. L3-L4: Unremarkable. L4-L5: Mild disc bulge and mild facet arthropathy. No central stenosis or foraminal narrowing L5-S1: Moderate loss of disc space height. Right hemilaminotomy defect. No new disc herniation but diffuse disc bulge. Moderate LEFT facet arthropathy with ligamentum flavum hypertrophy. Mild central stenosis. Moderate lateral recess narrowing bilaterally. Moderate RIGHT and mild LEFT foraminal narrowing. Impression Postsurgical change at L5-S1 stable. Chronic disc bulge and facet disease primarily on the LEFT at this level leading to mild central stenosis and moderate RIGHT and mild LEFT foraminal narrowing Minimal discogenic change at L4-5 . No new disc herniations identified - Note: Radiology results need to be interpreted within a comprehensive clinical context. If you have questions about the radiology report, please contact the office of the ordering clinician. Results for orders placed during the hospital encounter of 11/20/15 MRI LUMBAR SPINE W WO CONTRAST Narrative MRI LUMBAR SPINE W WO CONTRAST 11/20/2015 3:44 PM HISTORY: M54.5-Low back nkiz-DZN-40-CM. Compare: Lumbar spine series March 20, 2014. Lumbar spine MR January 19, 2014. Multihance administered IV in the amount of 15 cc Additional history: Back and leg pain on right side No acute fracture. Normal conus seen extending to the level of L1 Signal alteration seen in the discs at multiple levels consistent with degenerative disc disease, most prominent at L5-S1 No disc herniation or compression of neural structures from the level of T11-T12 through L3-L4 L4-L5 level mild facet arthropathy. L5-S1 level evidence of prior surgery noted. Cuqq-zu-yfthdyqh contrast enhancement, most prominent in the right paracentral region and extending around the right side of the thecal sac to the area of the laminectomy defect. The morphology at this level also suggests some broad-based discogenic disease with mild ventral indentation of the thecal sac. Mild facet arthropathy. Mild to moderate narrowing of the L5 neural foramina. Contrast enhancement is noted adjacent to the right S1 root. Impression : Postsurgical change as well as multilevel discogenic disease with foraminal narrowing as described. L5-S1 level findings consistent with pryu-kp-dvycqajz scarring/epidural fibrosis and mild broad-based discogenic disease as described. No results found for this or any previous visit. No results found for this or any previous visit. No results found for this or any previous visit. Results for orders placed during the hospital encounter of 12/06/13 XR LUMBAR SPINE AP AND LATERAL Narrative XR LUMBAR SPINE AP AND LATERAL , 3 views. 12/06/2013 at 11:46 a.m. Clinical: 43-year-old female. Low back pain radiating down right leg Impression : Minor degenerative hypertrophy L5-S1 facet joint. No fracture subluxation destructive process. Vertebral body height and disc spaces preserved. No results found for this or any previous visit. Prescription Monitoring Program: 05/26/2023 9:32 AM AMB SPINE RISK TOOL (ORT) How often do you have mood swings? Sometimes How often do you smoke a cigarette within an hour after you wake up? Never How often have any of your family members, including parents and grandparents, had a problem w/ alcohol or drugs? Never How often have any of your close friends had a problem with alcohol or drugs? Never How often have others suggested that you have a drug or alcohol problem? Never How often have you attended an AA or NA meeting? Never How often have you taken medication other than the way that it was prescribed? Never How often have you been treated for an alcohol or drug problem? Never How often have your medications been lost or stolen? Never How often have others expressed concern over your use of medications? Never How often have you felt a craving for medications? Never How often have you been asked to give a urine screen for substance abuse? Never How often have you used illegal drugs (for example, marijuana, cocaine, etc.) in the past five years? Never How often, in your lifetime, have you had legal problems or been arrested? Never Risk Tool Total 2 No data to display No results found for: UAMPHET , LABBARB , LABBENZ , UBUPREN , UCARISO , COCAINEMETAB , UMEPERI , METHADONEAND , OPIATE , OXYCODONELVL , LABPHEN , UPROPOX , UTAPENT , UTRAMAD , CANNABINOIDM , UZOLPID , URINECREARUP , DRUGPANELINT No results found for: DRUGEXPECT , URCREATININE , ALPRAZOLAM , AHDALPRAZ , CLONAZEPAM , 7AMNCLON , DIAZEPAM , NORDIAZEPAM , FLUNITRAZ , 7AMNFLUN , FLURAZEPAM , HDXYETFLUR , LORAZEPAM , LORAZGLUC , MIDAZOLAM , AHDMIDAZ , OXAZEPAM , OXAZGLUC , TEMAZEPAM , TEMAZGLUC , TRIAZOLAM , AHDTRIAZ EMBOSSER OPERATOR/JESSICA and most recent UDS reviewed on 01/15/2025 as available. . Assessment and Plan: Diagnoses and all orders for this visit: Vertebrogenic pain - MRI LUMBAR SPINE WO CONTRAST INTRACEPT CANDIDATE; Future Lumbar spondylosis Overview: Results for orders placed during the hospital encounter of 01/19/14 MRI LUMBAR SPINE WO CONTRAST Narrative PROCEDURE: MRI lumbar spine without contrast, 01/19/2014. INDICATION: Degenerative disc disease. Right leg pain. FINDINGS: MRI lumbar spine is performed without IV contrast. Comparison radiographs 12/06/2013. No prior MRI. There 5 lumbar vertebral bodies. Normal conus, lumbar alignment, and bone marrow signal. L1 throughout 4 interspaces are essentially negative. Bilateral facet hypertrophy L4-L5. L5-S1: Disc degeneration and desiccation with broad-based posterior disc bulging eccentric to the right and moderate inferior right disc extrusion. Bilateral facet arthritis. There is moderate central canal stenosis. There is right lateral recess stenosis with probable mass effect upon the traversing right S1 nerve root. Mild narrowing of the neural foramina bilaterally. Impression : Disc spondylosis and facet arthritis at L5-S1 including moderate inferior right disc extrusion. There is moderate central canal stenosis and there is advanced right lateral recess stenosis with probable mass effect upon the right S1 nerve root at this level. Orders: - MRI LUMBAR SPINE WO CONTRAST INTRACEPT CANDIDATE; Future Other orders - diclofenac (VOLTAREN) 75 mg Oral Tablet, Delayed Release (E.C.); Take 1 Tablet by mouth 2 times daily as needed for Pain for up to 30 days. Dispense: 60 Tablet; Refill: 2 Plan: - Additional Studies Indicated: Order MRI Lumbar spine without contrast - Indication: Chronic, persistent pain with >6 weeks of conservative treatment - Start Diclofenac: Patient informed of increased risk of heart attacks, stroke, kidney problems, in addition to gastric ulcers with use of non-steroidal anti- inflammatory medications. - will order updated MRI to see if modic changes are present - consider Ziggy SI Injection - continue SCS, contact rep as discussed - short term relief lumbar RFA - The patient has been provided with an instructional packet in order to perform physician directedhome exercise program (HEP) at least 30 minutes per day and at least 5 times per week. Back pain specific exercises that were provided to the patient includes: Sinlge knee to Chest, Pelvic tilt, Cat-Cow, Press-ups, Bridges, Belly Crunches, Sphinx Pose and Back Lifts. - We discussed that she will continue Physical Therapy/Home Exercise Program for at least 4-6 weeksprior to re-evaluation. - Return for MRI follow up. Coty Arechiga APRN Interventional Pain Management [facility] [place] documented in this encounter Plan of Treatment Upcoming Encounters Date Type Department Care Team (Late st Contact Info) Description 02/15/2025 1:00 PM EDT Hospital Encounter [facility] MRI [address] [place] [address] Coty Arechiga APRN [address] [place] [address] 03/10/2025 9:15 AM EDT Office Visit [facility] [address] [place] [address] Osorio Fitzgerald MD [address] [place] [address] Scheduled Orders Name Type Priority Associated Diagnoses Orde r Schedule MRI LUMBAR SPINE WO CONTRAST INTRACEPT CANDIDATE Imaging Routine Lumbar spondylosis Vertebrogenic pain 1 Occurrences starting 01/16/2025 until 01/16/2026 documented as of this encounter Goals Goal Patient Goal Type Associated Problems Recent Progress Patient-Stated? Author Blood Pressure < 140/90 Blood Pressure 115/73(2024 8:56 AM EDT) No Julian Cam MD BMI (Calculated) < 30 General 37.7(08/12/19 25 1:37 PM EST) No Julian Cam MD Eat better, exercise, reach an ideal body weight General On track( 021 4:33 PM EDT) No Elsie Desouza CCMA HEMOGLOBIN A1C < 7.0 Result Component 7.9( 10:50 AM EST) No Julian Cam MD Weight < 150 lb (68.04 kg) Weight 167 lb (75.8 kg)(08/04/202 5 10:59 AM EDT) Edison Lane MD documented as of this encounter Visit Diagnoses Diagnosis Vertebrogenic pain- Primary Backache, unspecified Lumbar spondylosis Lumbosacral spondylosis without myelopathy documented in this encounter Care Teams Hotel Maid Relationship Specialty Start Date End Date Julian Cam MD [address] [place] [address] [place] [phone] PCP - General Internal Medicine 01/26/17 Nicolas Nagel MD [address] [place] [address] [place] [id number] Internal Medicine-Cardiovascular Disease 04/02/20 documented as of this encounter
[2025-01-22] VITALS (10 sets, daily range): BP systolic 105–131; BP diastolic 66–77; PULSE 90–99; RESP 16–18; TEMP 36.6–38.8; O2SAT 93–98; BMI 32.7
--- OUTSIDE RECORDS SUMMARY | 2025-01-22 20:09 | XMS_ITS | Clinical Summary ---
Author Organization [facility] Address [address] [place] [id number] Phone Care Team Providers Care Telecommunication Systems Designer Name Role Phone Lay NAVARRO, Edison Wilkinson [phone] Conditions or Problems No information available. Medications No information available. Medications Administered No information available. Allergies, Adverse Reactions, Alerts No information available. Results No information available. Plan of Care No information available. Procedures No information available. Vital Signs No information available. Immunizations No information available. Advance Directives No information available.
--- OUTSIDE RECORDS SUMMARY | 2025-01-22 20:10 | XMS_ITS | Encounter Summary ---
Author Organization [facility] [place] [address] Care Team Providers Care Barrel Rifler Broach Name Role Phone Julian Cam MD Primary Care Provider [phone] Nicolas Nagel MD Unavailable [phone] Reason for Visit * Reason Comments Medication Refill Encounter Details Date Type Department Care Team (Late st Contact Info) Description 12/01/2024 Refill SEP Andrew [facility] [place] [address] Julian Cam MD [address] [place] [address] Medication Refill Social History Tobacco Use Types Packs/Day Years Used Date Smoking Tobacco: Never Smokeless Tobacco: Never Alcohol Use Standard Drinks/Week Comments No 0 (1 standard drink = 0.6 oz pur e alcohol) Overall Financial Resource Strain (CARDIA) Answe r Date Recorded How hard is it for you to pa y for the very basics like food, housing, medical care, and heating? Not very hard 08/27/2022 PHQ-2 Answer Date Recorded PHQ-2 Total Score 0 02/09/2024 [facility] [place] of Occupat ional [facility] - Occupational Stress [...] place to sleep or slept in a residential (including now)? No 08/27/2022 Sexually Active Control Partners Comments Not Currently Comments No Sex and Gender Information Value Date Recorded Sex Assigned at Not on file Legal Sex Female 10:01 PM EDT Gender Identity Not on file Sexual Orientation Not on file documented as of this encounter Functional Status * Is the person deaf or does he/she have serious difficulty hearing? Answer Date of Assessment Author No 09/09/2022 1:56 PM aPco Skelton CCMA * Is the person blind or does he/she have serious difficulty seeing even when wearing glasses? Answer Date of Assessment Author No 09/09/2022 1:56 PM Paco Skelton CCMA * Does this person have serious difficulty walking or climbing stairs? Answer Date of Assessment Author No 09/09/2022 1:56 PM EDT Paco Morton CCMA * Does this person have difficulty dressing or bathing? Answer Date of Assessment Author No 09/09/2022 1:56 PM EDT Paco Morton CCMA * Because of a physical, mental or emotional condition, does this person have difficulty doing errands alone such as visiting a doctor's office or shopping? Answer Date of Assessment Author No 09/09/2022 1:56 PM EDT Paco Morton CCMA documented as of this encounter Mental Status * Because of a physical, mental or emotional condition, does this person have serious difficulty concentrating, remembering or making decisions? Answer Entry Date Author No 09/09/2022 1:56 PM EDT Paco Morton CCMA documented in this encounter Ordered Prescriptions Prescription Sig Dispense Quantity Refills Last Filled Start Date End Date hydroCHLOROthiazid e 25 mg Oral Tablet Take 1 Tablet by mouth daily. 30 Tablet 12/02/2024 12/13/2024 documented in this encounter Miscellaneous Notes * Telephone Encounter - Diana Green CPhT - 12/02/2024 11:40 AM EDT Hctz Future Visit: na Last Assessed Visit: na Follow-Up Date: na Appointment protocol failed AND this patient requires the following labs/vitals. Routing to the office. Serum sodium (6 months), Abnormal serum potassium OR potassium not on file within 6 months, and Serum creatinine (6 months) documented in this encounter Plan of Treatment Upcoming Encounters Date Type Department Care Team (Late st Contact Info) Description 02/15/2025 1:00 PM EDT Hospital Encounter [facility] [address] [place] [address] Coty Arechiga, NIB ADJUSTER [address] [place] [address] 03/10/2025 9:15 AM EDT Office Visit [facility] [address] [facility] [place] [phone] Osorio Fitzgerald MD [address] [place] [address] documented as of this encounter Goals Goal Patient Goal Type Associated Problems Recent Progress Patient-Stated? Author Blood Pressure < 140/90 Blood Pressure 115/73(2024 8:56 AM EDT) No Julian Cam MD BMI (Calculated) < 30 General 37.7(08/12/19 1:37 PM EST) No Julian Cam MD Eat better, exercise, reach an ideal body weight General On track( 021 4:33 PM EDT) No Elsie Desouza CCMA HEMOGLOBIN A1C < 7.0 Result Component 7.9( 10:50 AM EST) No Julian Cam MD Weight < 150 lb (68.04 kg) Weight 167 lb (75.8 kg)( 10:59 AM EDT) No Edison Lam MD documented as of this encounter Visit Diagnoses Not on filedocumented in this encounter Discontinued Medications Medication Sig Discontinue Reason Start Date End Da te hydroCHLOROthiazide 25 mg Oral Tablet Take 1 Tablet by mouth daily. 10/25/2024 12/02/2024 documented as of this encounter Care Teams Barrel Rifler Broach Relationship Specialty Start Date End Date Julian Cam MD [facility] [place] [address] PCP - General Internal Medicine 01/26/17 Nicolas Nagel MD [address] [place] [address] [place] [address] Internal Medicine-Cardiovascular Disease 04/02/20 documented as of this encounter
--- OUTSIDE RECORDS SUMMARY | 2025-01-22 20:10 | XMS_ITS | Encounter Summary ---
Author Organization [place] [address] Care Team Providers Care Cherry Picker Operator Name Role Phone Margarito Ibarra MD Primary Care Provider [phone] Julian Cam MD Primary Care Provider [phone] Nicolas Nagel MD Unavailable [phone] Katelynn Yun RN Unavailable Unavailable Encounter Details Date Type Department Care Team (Late st Contact Info) Description 09/26/2015 Orders Only [facility] [address] [phone] Carlos Masters, DO [address] [facility] [address] [place] [phone] Social History Tobacco Use Types Packs/Day Years Used Date Smoking Tobacco: Never Smokeless Tobacco: Never Alcohol Use Standard Drinks/Week Comments No 0 (1 standard drink = 0.6 oz pur e alcohol) Comments No Sex and Gender Information Value Date Recorded Sex Assigned at Not on file Legal Sex Female 10:01 PM EDT Gender Identity Not on file Sexual Orientation Not on file documented as of this encounter Plan of Treatment Upcoming Encounters Date Type Department Care Team (Late st Contact Info) Description 02/15/2025 1:00 PM EDT Hospital Encounter [facility] [address] [place] [address] Coty Arechiga APRN [address] [place] [id number] 03/10/2025 9:15 AM EDT Office Visit [facility] [address] [facility] [place] [address] Osorio Fitzgerald MD [address] [place] [address] documented as of this encounter Goals Goal Patient Goal Type Associated Problems Recent Progress Patient-Stated? Author Weight < 150 lb (68.04 kg) Weight 167 lb (75.8 kg)(01/16/2025 10:59 AM EDT) No Edison Lam MD documented as of this encounter Procedures Procedure Name Priority Date/Time Associated Diagnosis Comments [facility]ED EGD Routine 09/26/2015 6:40 AM EDT documented in this encounter Results * [facility]ED EGD (09/26/2015 6:40 AM EDT) 09/26/2015 6:40 AM EDT Impressions [facility] - 09/26/2015 7:46 AM EDT Ring in the gastroesophageal junction. (Dilation). Erosions (few) in the antrum. (Biopsy). Normal mucosa in the whole examined duodenum. Plan: Await pathology results Will call with pathology results in 1-2 weeks Prilosec 40mg 1 PO twice a day for 8 weeks This section is an excerpt of the full report. us Carlos Masters DO GI PROCEDURE ORDERABLES E dited Result - Final [facility] [address] [place] [address] documented in this encounter Visit Diagnoses Not on filedocumented in this encounter Additional Health Concerns Infection Onset Date Last Indicated Resolved Time R/O C-Diff 11/30/2019 11/30/201911/30/2019 5:25 PM EDT documented as of this encounter Care Teams Cherry Picker Operator Relationship Specialty Start Date End Date Margarito Ibarra MD [address] [facility] [address] PCP - General Family Medicine 04/12/15 01/25/17 [place] [address] [place] [address] PCP - General Internal Medicine 01/26/17 Nicolas Nagel MD [address] [place] [address] [address] [place], [place] [id number] Internal Medicine-Cardiovascular Disease 04/02/20 Katelynn Yun, RN Pumper Hand Registered Nurse 11/28/20 07/25/21 documented as of this encounter
--- OUTSIDE RECORDS SUMMARY | 2025-01-22 20:10 | XMS_ITS | Clinical Summary ---
Author Organization [facility] Address [address] [place] [address] Phone Care Team Providers Care Etcher Machine Name Role Phone Julian Cam MD Primary Care Provider [phone] Nicolas Nagel MD Unavailable Allergies Active Allergy Reactions Criticality Noted Date Comments Adhesive Dermatitis 11/10/2023 Medications * This document contains information received from the source organization and may not represent a complete record from that organization. fluticasone (FLONASE) 50 mcg/actuation Nasl [place], SuspensionIndicati ons:Allergic rhinitis, unspecified allergic rhinitis type 2 Sprays by Nasal route daily. 1 Bottle 6 6 Active cyanocobalamin, vitamin B-12, (VITAMIN B-12 ORAL) Take by mouth. Active dicyclomine (BENTYL) 20 mg Oral Tablet Take 1 Tablet by mouth 4 times daily (before meals and nightly). 60 Tablet 2 4 Active FLUoxetine (PROZAC) 40 mg Oral CapsuleIndications :Generalized anxiety disorder Take 1 Capsule by mouth 2 times daily. 180 Capsule 3 4 Active hydrocortisone 2.5 % Top Ointment Apply topically. 5 Active ketoconazole (NIZORAL) 2 % Top Cream Apply topically daily. 5 Active triamcinolone (NASACORT) 55 mcg Nasl Aerosol, SprayIndications:P ND (post-nasal drip) 1 [place] by Nasal route 2 times daily. 16 mL 5 5 Active azelastine (ASTELIN) 137 mcg (0.1 %) Nasl [place], Non-Aerosol 1 [place] in each nostril 2 times daily. 5 Active lactobacillus combination no.4 (PROBIOTIC) 3 billion cell Oral CapsuleIndications :Irritable bowel syndrome with diarrhea Take 1 Capful by mouth nightly. 90 Capsule 3 5 Active desvenlafaxine succinate (PRISTIQ) 50 mg Oral Tablet Sustained Release 24 hr Take 1 Tablet by mouth daily. 90 Tablet 3 5 Active medroxyPROGESTERon e (PROVERA) 2.5 mg Oral Tablet Take 1 Tablet by mouth daily. 90 Tablet 1 5 Active semaglutide 2 mg/dose (8 mg/3 mL) SubQ Pen InjectorIndication s:type 2 diabetes mellitus Inject 2 mg under the skin once a week. Indications: type 2 diabetes mellitus 3 mL 2 5 Active celecoxib (CELEBREX) 200 mg Oral CapsuleIndications :Chronic joint pain Take 1 Capsule by mouth 2 times daily for 90 days. 60 Capsule 2 5 02/16/20 25 Active estradioL (ESTRACE) 1 mg Oral TabletIndications: Hormone replacement therapy Take 1 Tablet by mouth daily. 30 Tablet 5 Active pantoprazole (PROTONIX) 40 mg Oral Tablet, Delayed Release (E.C.)Indications: Gastroesophageal reflux disease without esophagitis Take 1 Tablet by mouth 2 times daily. 200 Tablet 2 5 Active busPIRone (BUSPAR) 10 mg Oral TabletIndications: Generalized anxiety disorder Take 1 Tablet by mouth 2 times daily. 60 Tablet 5 Active hydroCHLOROthiazid e 25 mg Oral Tablet Take 1 Tablet by mouth daily. 30 Tablet 5 Active rosuvastatin (CRESTOR) 20 mg Oral TabletIndications: Type 2 diabetes mellitus without complication, without long-term current use of insulin (HCC),Mixed hyperlipidemia Take 1 Tablet by mouth nightly. 90 Tablet 3 5 Active cetirizine (ZYRTEC) 10 mg Oral TabletIndications: Rhinosinusitis Take 1 Tablet by mouth daily. 30 Tablet 5 5 Active traZODone (DESYREL) 50 mg Oral TabletIndications: Insomnia, persistent Take 1 Tablet by mouth nightly as needed. for sleep 30 Tablet 2 5 Active lisinopriL (PRINIVIL;ZESTRIL) 5 mg Oral TabletIndications: Microalbuminuric diabetic nephropathy (HCC) Take 1 Tablet by mouth daily for 360 days. 90 Tablet 3 5 01/06/20 26 Active diclofenac (VOLTAREN) 75 mg Oral Tablet, Delayed Release (E.C.) Take 1 Tablet by mouth 2 times daily as needed for Pain for up to 30 days. 60 Tablet 2 5 02/16/20 25 Active Active Problems Patient Care Coordination No te Formatting of this note migh t be different from the original. [facility] - Osorio Fitzgerald MD Controlled Substance Protocol Completed: Gabapentin and/or Pregabalin A. Informed Consent Statement signed (Yearly) ( needs ) B. Controlled Substance Agreement signed (Yearly) ( needs ) D. Dayron report completed (EVERY 3 MONTHS) ( 01/16/2025 ) Pharmacy: [facility] [place] [address] [id number] [facility] [phone] Problem Noted Date Diagnosed Date Lumbar post-laminectomy syndrome 11/03/2023 Assessment & Plan (05/06/2024 4:16 PM EST): Acute exacerbation of chronic pain unable to get in with orthopedic physician until Thursday to adjust spinal stimulator. Will provide a steroid shot today for temporary management of acute pain Orders: methylPREDNISolone acetate (DEPO-Medrol) injection 80 mg betamethasone acet-betamethasone sodium phos (CELESTONE) injection 12 mg Lumbar radiculopathy 04/10/2023 Hormone replacement therapy 09/09/2022 Overview (09/09/2022): On estrogen and progesterone per her PROCESS MANAGER in [facility] Aware of risk Recommend ct coronary and early genetic cancer screening given FH Dietary counseling and surveillance 04/23/2022 Obesity (BMI 30-39.9) 04/17/2022 Overview (12/22/2023): Wt Readings from Last 3 Encounters: 12/22/23 169 lb (76.7 kg) 11/11/23 170 lb (77.1 kg) 09/04/23 164 lb 9.6 oz (74.7 kg) Doing well on wegovy Microalbuminuric diabetic nephropathy 11/28/2020 Overview (11/28/2020): On ACEi. Irritable bowel syndrome with diarrhea Overview (08/30/2020): workup in past. has slow motility. labs negative for food allergies and celiac. sig improvement on xifaxin. Assessment & Plan (08/14/2024 9:31 PM EST): add daily probiotic. would consider xifaxin course if remains symptomatic. Diverticulosis of colon 03/01/2020 Abnormal uterine bleeding 06/21/2019 Overview (06/21/2019): On OCP for management. Referral back to PROCESS MANAGER to discuss alternative options per patient request. Nonrheumatic mitral valve regurgitation 06/21/19 Overview (06/21/2019): Results for orders placed during the hospital encounter of 04/26/14 EC ECHOCARDIOGRAM COMPLETE W DOPPLER AND COLOR FLOW MAPPING Impression FINDINGS Estimated Left Ventricular Ejection Fraction =45-50% Left Ventricle Left ventricular cavity size normal. Left ventricular wall thickness is normal. No obvious regional wall motion abnormalities. Right Ventricle Normal right ventricular size and function. Right Atrium Normal right atrial size. Left Atrium Normal left atrial size. Left atrial volume index is estimated to be 16.3 ml/m2. Mitral Valve Mild thickening of the mitral valve. Mild mitral annular calcification. Trace to mild mitral regurgitation. No mitral stenosis. Aortic Valve Structurally normal trileaflet aortic valve. No aortic stenosis. No aortic regurgitation. Tricuspid Valve Trace tricuspid regurgitation. Right ventricular systolic pressure estimated at least 21 mmHg. Pulmonic Valve Pulmonic valve not well visualized. Trace pulmonic regurgitation. No pulmonic stenosis. Pericardium Normal pericardium without effusion. Aorta Normal aortic root dimension. CONCLUSIONS Preserved left ventricular systolic function Trace to mild mitral regurgitation. Generalized anxiety disorder 06/21/2019 Overview (12/22/2023): Restarted prozac and on buspar - both bid. Bilateral carpal tunnel syndrome 11/01/2018 Type 2 diabetes mellitus wit hout complication, without long-term current use of insulin 06/03/2016 Overview (07/01/2024): Lab Results Component Value Date HGBA1C 6.4 (H) 07/28/2023 HGBA1C 6.2 (H) 09/09/2022 HGBA1C 6.6 (H) 04/08/2022 Intolerance to metformin, wegovy and saxenda. on statin, holding ACEi due to chronic cough Hold ASA d/t chronic GI symptoms Assessment & Plan (07/01/2024 8:28 AM EST): tolerated Ozempic in lower doses in the past, will restart Ozempic for blood sugar control with very slow titration Assessment & Plan (06/24/2024 4:50 PM EST): A1C has increased to 7.9 per today's POCT. Reinforced importance of compliance with ADA diet guidelines as well the potential for increased oral yeast from increased blood sugars. f/u in 6 weeks for diabetic check up. Assessment & Plan (09/01/2023 2:22 PM EDT): Good control overall stopping ozempic due to stomach problems. Trial of farxiga 5 mg if covered. Discussed benefits/side effects. Metabolic syndrome 06/03/2016 Mixed hyperlipidemia 06/03/2016 Overview (12/22/2023): On statin Gastroesophageal reflux disease without esophagi tis 10/17/2015 Overview (08/14/2024): On Omeprazole for maintenance. Active with [facility]. EGD 08/2023. Assessment & Plan (08/14/2024 9:30 PM EST): Stop omeprazole due to uncontrolled GERD symptoms. After discussion of risks, benefits and possible side effects, will begin pantoprazole as written. Disucussed that Ozempic may be contributing to her symptoms as well. If symptoms persist, will hold Ozempic, next step to return to [facility] for further evaluation. Esophageal stricture 10/17/2015 Overview (10/17/2015): EGD 09/2915 Ring in the gastroesophageal junction. (Dilation). Erosions (few) in the antrum. (Biopsy). Normal mucosa in the whole examined duodenum. Plan: Await pathology results Will call with pathology results in 1-2 weeks Prilosec 40mg 1 PO twice a day for 8 weeks Dysphagia 10/17/2015 Overview (10/17/2015): Resolved after esophageal dilation Chronic cough 10/17/2015 Overview (07/01/2024): Chronic dry hacking cough starting 03/2024, multiple rounds of steroids, antibiotics and use of Flonase without improvement. Had ENT consult 06/2024. reports improving symptoms with addition of Astelin nasal spray, nasacort and Zyrtec.-Discontinued 5mg lisinopril 07/01/2024 Also remote history of persistent/chronic cough 2015, extensive diagnostic work up including ENT consult and upper GI with esophageal dilation, continues PPI therapy Assessment & Plan (07/01/2024 8:51 AM EST): Discontinue lisinopril 5mg. Was taking for diabetic renal protection. Renal function normal. Will continue to monitor and consider adding back ARB if indicated. Mild persistent asthma without complication 03/16 Overview (01/14/2021): Stable on Breo and albuterol Lumbar spondylosis 08/22/2014 Overview (07/26/2021): Results for orders placed during the hospital [...] right S1 nerve root at this level. Assessment & Plan (03/12/2023 4:20 PM EDT): Not able to return to work Will extend work note through April 04 to give her time to see her back specialist and come up with a plan for relief. Assessment & Plan (07/26/2021 12:21 PM EST): No new or focal neuro deficits. Mostly bilateral SI joint tenderness on exam Start low dose mobic Get shoe insets Stand on cushioned mat Assessment & Plan (09/28/2020 12:18 PM EDT): Progressive symptoms. No indication to update imaging at this time. No new focal neuro deficits and no red flags. Osteoarthritis 06/18/2012 Resolved Problems Problem Noted Date Diagnosed Date Resolved Date Class 2 severe obesity due t o excess calories with serious comorbidity and body mass index (BMI) of 35.0 to 35.9 in adult 11/28/2020 3 Overview (11/28/2020): Wt Readings from Last 3 Encounters: 11/28/20 176 lb (79.8 kg) 11/26/20 175 lb 3.2 oz (79.5 kg) 10/08/20 170 lb (77.1 kg) Followed by weight loss clinic Obesity, Class I, BMI 30-34.9 03/28/2020 11/28/2020 Overview (05/22/2020): Wt Readings from Last 3 Encounters: 05/22/20 160 lb (72.6 kg) 04/09/20 154 lb (69.9 kg) 03/28/20 163 lb (73.9 kg) Successful weight loss on saxenda 15lbs, diet Continue same. Gastroesophageal reflux dise ase with esophagitis 02/15/2019 06/21/2019 Dietary counseling and surveillance 07/23/2016 03/30/2017 Dietary counseling and surveillance 06/25/2016 03/30/2017 Prediabetes 06/03/2016 06/10/2019 Obesity (BMI 35.0-39.9 without comorbidity) 06/03/2016 03/28/2020 Gastritis 10/17/2015 06/21/2019 Overview (10/17/2015): Seen by Dr. Masters in GI had EGD 09/26/2015 Ring in the gastroesophageal junction. (Dilation). Erosions (few) in the antrum. (Biopsy). Normal mucosa in the whole examined duodenum. Plan: Await pathology results Will call with pathology results in 1-2 weeks Prilosec 40mg 1 PO twice a day for 8 weeks Glucose intolerance (impaire d glucose tolerance) 04/12/2015 02/15/2019 Overview (10/17/2015): 10/17/15 Referred to endo per GI. Started on metformin and not able to tolerated due to diarrhea. Last fasting blood sugar: 89 Lab Results Component Value Date HGBA1C 5.7 10/16/2015 HGBA1C 6.0 02/10/2015 Wt Readings from Last 3 Encounters: 10/17/15 172 lb (78.019 kg) 10/16/15 173 lb 9.6 oz (78.744 kg) 10/15/15 173 lb (78.472 kg) In past recommended Calorie restrict attempt 7229-9925 calories per day. Decrease starches like bread pasta and potatoes and simple sugars. Daily exercise. DDD (degenerative disc disease), lumbar 04/12/2015 02/15/2019 Overview (04/12/2015): S/p laminectomy Stable on daypro Allergic rhinitis, cause unspecified 03/30/2017 Postoperative nausea and vomiting 06/18/2015 Encounters Date Type Department Care Team Description 01/16/2025 11:00 AM EDT Office Visit [facility] [address] [facility] [id number] Coty Arechiga APRN Vertebrogenic pain (Primary Dx); Lumbar spondylosis 01/10/2025 Telephone [facility] [address] [place] [address] Julian Cam MD Refill (Med refill ) 01/03/2025 Refill [facility] [address] [place] [address] Julian Cam MD Medication Refill 01/02/2025 Refill [facility] [address] [place] [address] Julian Cam MD Medication Refill 12/14/[address] [address] Bob Gibbons MD Medication Refill 12/14/2024 Refill [facility] [address] [place] [address] Kathleen Meerdith APRN Medication Refill 12/13/2024 Refill [facility] [address] [place] [address] Julian Cam MD Medication Refill 12/12/2024 Refill [facility] [address] [place] [address] Julian Cam MD Medication Refill 12/12/2024 Refill [facility] [address] [place] [address] Katelynn Aleman APRN Medication Refill 12/01/2024 Refill [facility] [address] [place] [address] Julian Cam MD Medication Refill 11/23/2024 Refill [facility] [place] [address] [place], [place] [address] Julian Cam MD Medication Refill 11/17/2024 8:00 AM EDT - 11/17/2024 11:59 PM EDT Hospital Encounter [place] [facility] [address] [place] [address] Coty Arechiga APRN Lumbar spondylosis Discharge Disposition: Home or Self Care 11/17/2024 Telephone [place] [address] [place] [phone] Osorio Fitzgerald MD Medication Management 11/09/2024 2:00 PM EDT Office Visit [place] [address] [place], [place] [address] Katelynn Aleman APRN Type 2 diabetes mellitus without complication, without long-term current use of insulin (HCC) (Primary Dx); Rheumatoid arthritis involving multiple sites with positive rheumatoid factor (HCC); Hormone replacement therapy; Lumbar spondylosis 10/31/2024 11:30 AM EDT Office Visit [facility] [address] [facility] [place] [phone] Coty Arechiga APRN Lumbar spondylosis (Primary Dx); Chronic joint pain; Type 2 diabetes mellitus without complication, without long-term current use of insulin (HCC); Postlaminectomy syndrome, lumbar region; Lumbar radiculopathy; Myofascial pain 10/31/2024 Telephone [place] [address] [place] [phone] Coty Arechiga APRN Prior Authorization (% and duration of relief from RFA bilateral L4-S1 on 07/02/2023) 10/25/2024 Refill [facility] [place] [address] [place] [address] Julian Cam MD Medication Refill 10/25/2024 Telephone [place] [address] [place] [address] Julian Cam MD Medication Refill; Follow Up (HydroCHLOROthiazide med refill f/u) from Last 3 Months Immunizations Immunization Administration Dates Next Due Influenza Patient Reported 03/15/2015 Influenza Vaccine, Unspecifi ed Formulation 04/13/2018,02/26/2017,03/11/2016,03/13,03/15/2013,03/15/2012 Influenza Virus Vaccine Quad rivalant, Flublok 03/13/2020 Influenza, Injectable, MDCK, PF, Quadrivalent 04/04/2019 Pneumococcal Polysaccharide 23 Valent 03/13/2020 Tdap 04/12/2015 Surgical History Surgery Date Site/Laterality Comments CHOLECYSTECTOMY 06/15/1996 - 06/14/1997 TUBAL LIGATION BLADDER SURGERY bladder sling LUMBAR LAMINECTOMY 03/20/2014 Right RIGHT L5/S1 DECOMPRESSION WITH DISCECTOMY OF CAUDALLY MIGRATED FRAGMENT ; Surgeon: Barrera Shen MD; Location: [facility]; Service: Neurosurgery CARPAL TUNNEL RELEASE 12/14/2018 Bilateral BILATERAL CARPAL TUNNEL RELEASE; Surgeon: Keyshawn Dobbins MD; Location: [facility]; Service: Hand IR 2 LEVEL BILATERAL MEDIAL BRANCH BLOCK LUM SAC 01/10/2021 IR 2 LEVEL BILATERAL MEDIAL BRANCH BLOCK LUM SAC 01/10/2021 [facility] IR 2 LEVEL BILATERAL MEDIAL BRANCH BLOCK LUM SAC 02/28/2021 IR 2 LEVEL BILATERAL MEDIAL BRANCH BLOCK LUM SAC 02/28/2021 Osorio Fitzgerald MD [facility] SPINE SURGERY 11/11/2023 Spine/N/A SPINAL CORD STIMULATOR Perm; Surgeon: Osorio Fitzgerald MD; Location: [facility]; Service: Spine Medical devices from this surgery are in the Medical Devices section. Medical History Medical History Date Comments Allergic rhinitis, cause unspecified Postoperative nausea and vomiting Motion sickness Heartburn Osteoarthrosis, unspecified whether generalized or localized, unspecified site hands, knees, back Kidney stones Gall bladder stones Overweight History of chicken pox GERD (gastroesophageal reflux disease) Heart murmur Hypertension Leg cramps Snoring Swelling of both hands Swelling of lower extremity Asthma no inhaler Anemia Chronic kidney disease Dietary counseling and surveillance 04/23/2022 Hyperlipidemia Irritable bowel syndrome Family History Medical History Relation Name Comments Arthritis Brother 1 Diabetes Brother 1 High Blood Pressure Brother 1 High Cholesterol Brother 1 Other Brother 1 gout Arthritis Brother 2 Diabetes Brother 2 High Blood Pressure Brother 2 High Cholesterol Brother 2 Bipolar Disorder Daughter Anesth Problems Father nausea Cancer Father Elevated Lipids Father Heart Attack Father Heart Disease Father heart failure Anesth Problems Mother nausea Heart Disease Mother A-Fib Thyroid Disease Mother Cirrhosis Paternal Uncle Liver Disease Paternal Uncle Anxiety Disorder Sister Depression Sister Diabetes Sister High Blood Pressure Sister High Cholesterol Sister Rheum Arthritis Son Colon Cancer Neg Hx Esophageal Cancer Neg Hx Liver Cancer Neg Hx Rectal Cancer Neg Hx Stomach Cancer Neg Hx Relation Name Status Comments Brother 1 Alive Brother 2 Alive Daughter Alive Father Maternal Grandfather Maternal Grandmother Mother Alive Paternal Grandfather Paternal Grandmother Paternal Uncle Sister Alive Son Alive Social History Tobacco Use Types Packs/Day Years [...] Date Recorded PHQ-2 Total Score 0 02/09/2024 [facility] [place] [facility] Occupat ional Health - Occupational Stress [...] place to sleep or slept in a penitentiary (including now)? No 08/27/2022 Sexually Active Control Partners Comments Not Currently Comments No Sex and Gender Information Value Date Recorded Sex Assigned at Not on file Legal Sex Female 10:01 PM EDT Gender Identity Not on file Sexual Orientation Not on file Obstetrics History Para Term AB IAB SAB Ectopic Multiple Livin g Live Births 2 2 2 2 2 Date Outcome GA Total Labor Labor/2nd/3rd Weight Sex Type Anes PTL Julisa A1 A5 Name Clin 1986 Term F Vag-F orcep s N Living Complications:None 1992 Term M Vag-F orcep s N Living Complications:None Last Filed Vital Signs Vital Sign Reading Time Taken Comments Blood Pressure 115/73 11/17/2024 8:56 AM EDT Pulse 95 01/16/2025 10:59 AM EDT Temperature 37.1 C (98.7 F) 11/17/2024 8:01 AM EDT Respiratory Rate 20 11/09/2024 1:42 PM EDT Oxygen Saturation 97% 01/16/2025 10:59 AM EDT Inhaled Oxygen Concentration - - Weight 75.8 kg (167 lb) 01/16/2025 10:59 AM EDT Height 147.3 cm (4' 10 ) 08/12/2024 1:37 PM EST Body Mass Index 34.9 08/12/2024 1:37 PM EST Plan of Treatment Upcoming Encounters Date Type Department Care Team (Late st Contact Info) Description 02/15/2025 1:00 PM EDT Hospital Encounter [facility] [address] [place] [id number] Hawk Coty, SPIN TABLE OPERATOR [address] [place] [address] 03/10/2025 9:15 AM EDT Office Visit [facility] [address] [facility], [place] [address] Osorio Fitzgerald MD [address] [place] [address] Health Maintenance Due Date Last Done Comments Hepatitis B Vaccine (1 of 3 - 19+ 3-dose series) 1987 HPV/Pap Cotest 1998 Cologuard 2013 FIT 2013 Sigmoidoscopy 2013 Virtual Colonography 2013 Zoster (1 of 2) 2018 Pneumococcal Vaccine 50+ (2 of 2 - PCV) 03/13/2021 03/13/2020 COVID-19 Vaccine ( - season) 2024 Cervical Cancer Screening 08/28/2024 Pap Smear 08/28/2024 08/28/2021, 11/2013 (Declined) Annual Wellness Exam 12/21/2024 12/22/2023 Hemoglobin A1c 12/22/2024 06/24/2024, 12/13, 07/28/2023, Additional history exists Kidney Health: eGFR 12/22/2024 12/23/2023, 07/28/2023, 09/09/2022, Additional history exists Kidney Health: uACR 12/22/2024 12/23/2023, 03/30/2017, 10/16/2015 Lipids 12/22/2024 12/23/2023, 03/16, 11/26/2020, Additional history exists Influenza Vaccine (#1) 2025 , 04/04/2019, 04/13/2018, Additional history exists DTaP/TDaP/Td (2 - Td or Tdap) 04/12/2025 04/12/2015 Diabetic Eye Exam 09/01/2025 09/02/2023, 01/02/2021 Breast Cancer Screening 11/09/2025 11/10/19 24, 08/01/2021, 06/10/2019, Additional history exists Colon Cancer Screening 02/07/2030 Colonoscopy 02/07/2030 02/08/2020 Meningococcal B Vaccine Aged Out No l onger eligible based on patient's age to complete this topic Goals Goal Patient Goal Type Associated Problems [...] 10:59 AM EDT) No Edison Lam MD Medical Devices Implanted Type Area Dance Coach Device Identifier Shelf Expiration Date Model / Serial / Lot Lead-10/29/2023 Implanted:Qty: 1 on 10/29/2023 by Osorio Fitzgerald MD Lead Back [employer] 08/05/2025 / [id number] / Lead-10/29/2023 Implanted:Qty: 1 on 10/29/2023 by Osorio Fitzgerald MD Lead Back [employer] 08/05/2025 / [id number] / Kit Lead Neurostimulator Octrode Ipg 1.4mm 60cm 4mm/7mm - [id number] Implanted:Qty: 1 on 11/11/2023 by Osorio Fitzgerald MD at [facility] N/A: Back [employer] [facility] [id number] 08/20/2025 [id number] / [id number] / [place] Neurostimulator Barker-Lock Mechanical Locking Lead No - [id number] Implanted:Qty: 2 on 11/11/2023 by Osorio Fitzgerald MD at [facility] N/A: Back [employer] [facility] [id number] 07/05/2025 1192 / / [id number] Kit Lead Neurostimulator Octrode Ipg 1.4mm 60cm 4mm/7mm - [id number] Implanted:Qty: 1 on 11/11/2023 by Osorio Fitzgerald MD at [facility] N/A: Back [employer] [facility] [id number] 08/21/2025 [id number] / [id number] / Generator Neurostimulator Ipg 5.3ah (Part Of Kit) - [id number] Implanted:Qty: 1 on 11/11/2023 by Osorio Fitzgerald MD at [facility] N/A: Back [employer] [facility] 07/15/2025 [id number] / [id number] / Procedures Procedure Name Priority Date/Time Associated Diagnosis Comments IR 2 LEVEL MARYCRUZ RFA DESTROY LUM OR SAC FACET JNT NERVE Routine 11/17/2024 8:57 AM EDT Lumbar spondylosis POCT GLYCATED HEMOGLOBIN, TOTAL Routine 06/24/2024 10:50 AM EST Type 2 diabetes mellitus without complication, without long-term current use of insulin (HCC) MICROALBUMIN/CREATINI NE RATIO URINE Routine 12/23/2023 12:06 PM EDT Type 2 diabetes mellitus without complication, without long-term current use of insulin (HCC) Microalbuminuric diabetic nephropathy (HCC) COMPREHENSIVE METABOLIC PANEL Routine 12/23/2023 12:06 PM EDT Annual physical exam LIPID PANEL REFLEX Routine 12/23/2023 12 :06 PM EDT Mixed hyperlipidemia MM MAMMO DIGITAL JOHANN SCREEN BILAT Routine 11/10/2023 1:50 PM EDT Encounter for screening mammogram for malignant neoplasm of breast DIABETES EYE EXAM Routine 01/02/2021 COLONOSCOPY Routine 02/08/2020 from Last 3 Months or Most Recently Relevant to Health Maintenance Results * IR 2 LEVEL MARYCRUZ RFA DESTROY LUM OR SAC FACET JNT NERVE (11/17/2024 8:57 AM EDT) Anatomical Region Laterality Modality Radio Fluoroscop y Narrative 11/17/2024 5:12 PM EDT [facility] PROCEDURE NOTE Maite Loco Florentin November 17, 2024 SURGEON(S): Osorio Fitzgerald MD PRE-OP DIAGNOSIS: Lumbosacral spondylosis without myelopathy POST-OP DIAGNOSIS: Lumbosacral spondylosis without myelopathy IMAGING: Fluoroscopy PROCEDURE: Radiofrequency Ablation (RFA) of Bilateral Medial Branches at L4/5 and L5/S1 PROCEDURE IN DETAIL: After obtaining written informed consent patient was taken to the procedure room. Pre-procedure blood pressure and pulse were stable and recorded in patients clinic chart. Patient was placed in a prone position and left and right lumbar area was prepped with chloraprep and draped in the usual sterile fashion. A formal time out was performed identifying the correct patient, correct procedure, reviewing anticoagulation status, reviewing allergies and verifying the correct sites and side. The skin over the left sacral ala was injected with 1% Lidocaine for local anesthesia. A 20-gauge RFL 100 mm needle with 10 mm active was inserted and advanced until it was touching the sacral ala in the area of the medial branch from L5 dorsal ramus on the left side. Next, in the oblique view, the left L4 and L5 levels were identified. The skin over the left L4 and L5 sites were then injected with 1% Lidocaine for local anesthesia. Next, additional RFL needles were inserted and advanced until touching the left L4 and L5 levels in the distrubution of the medial branches at each level making sure to not enter the neuroforamina on the left side. Following the placement of the needles sensory stimulation at 50 Hz and motor stimulation at 2 Hz was carried out. After confirming reproduction of the pain/sensation in the area of symptoms and the patient denying any motor movement, 2 mL's of 2% preservative free Lidocaine was injected at each level after negative aspiration. The RFA was then carried out in lesion mode. The settings were 80 C, and 90 seconds then turned for another 60 seconds for lesion mode at each level. During the procedure no pain was reported in the extremities by the patient. Next 1 ml of a 6ml mixture of PF 1% lidocaine and 10mg Decadron was injected with ease at each level after negative aspiration. After the procedure the needles were removed. Next the exact same procedure was then performed on the right side at the L4, L5, Sacral Ala levels. Skin was cleaned and a sterile dressing was applied. Following the procedure the patient's vital signs were stable. The patient was discharged. RFA DATA: Pt achieved sensory stimulation between 0.3-0.6 Volts and negative for any motor involvement up to 2 V EBL: approx 0-1cc Images of procedure found under images tab dated: 11/17/2024 DISPOSITION/POST PROC COURSE: The patient was monitored for any adverse hemodynamic, allergic, or neurological symptoms. The patient tolerated the procedure well with no apparent complications. Vital signs remained stable throughout the procedure. The patient was taken to the recovery area where written discharge instructions for the procedure were given. The patient was discharged home. Osorio Fitzgerald MD Interventional Pain Management [facility] Sp[facility] Coty Arechiga APRN IMG IR ORDERABLES Final Resu lt * (ABNORMAL) POCT GLYCATED HEMOGLOBIN, TOTAL (06/24/2024 10:50 AM EST) Hemoglobin A1C 7.9(A) 4 - 6 % SEP OFFICE Lot Number SEP OFFICE Expiration Date SEP OFFICE SeriAl # SEP OFFICE 06/24/2024 10:5 0 AM EST us Katelynn Aleman APRN POINT OF CARE TEST ORDERA BLES Final Result SEP OFFICE * LIPID PANEL REFLEX (12/23/2023 12:06 PM EDT) Cholesterol 137 <200 mg/dL 12/23/2023 4:30 PM EDT [email or web address] Comment: < 200 Desirable 200 - 239 Borderline High >= 240 High Triglyceride 90 <150 mg/dL 12/23/2023 4:30 PM EDT [facility] Comment: < 150 Normal 150 - 199 Borderline High 200 - 499 High >= 500 Very High HDL 46 >=40 mg/dL 12/23/2023 4:30 PM EDT [facility] Comment: > 60 Optimal 40 - 60 Acceptable < 40 Low LDL Calculated 74 <100 mg/dL 12/23/2023 4:30 PM EDT [facility] Non-HDL-C Calculated 91 <=129 mg/dL 12/23/2023 4:30 PM EDT [facility] Comment: <130 Desirable 130-159 Above Desirable 160-189 Borderline High 190-219 High >= 220 Very High Fasting Specimen? Yes None 024 4:30 PM EDT [facility] Blood VENOUS BLOOD / Unknown Venipuncture / Unknown 12/23/2023 12:06 PM EDT 12/23/2023 12:06 PM EDT Kathleen Meredith SPIN TABLE OPERATOR CHEMISTRY ORDERABLES Final Result Performing Organization Address [facility] de Phone Number [facility] [address] [facility], [place] [address] [facility] [address] [place] [address] * MICROALBUMIN/CREATININE RATIO URINE (12/23/2023 12:06 PM EDT) Urine Microalb 20.6 mg/L 12/23/2023 5:48 PM EDT [facility] Urine Creatinine 283.3 mg/dL 12/23/2023 5:48 PM EDT [facility] Ur Microalb/Creat 7 0 - 30 mg/g 12/23/2023 5:48 PM EDT [facility] Urine URINE SPECIMEN COLLECTION / Unknown 12/23/2023 12:06 PM EDT 12/23/2023 12:06 PM EDT Kathleen Viri SPIN TABLE OPERATOR URINE ORDERABLES Final Resu lt [facility] [address] [place] [address] * COMPREHENSIVE METABOLIC PANEL (12/23/2023 12:06 PM EDT) Sodium 144 136 - 145 mmol/L 12/23/2023 4:30 PM EDT [facility] Potassium 3.7 3.5 - 5.0 mmol/L 12/23/2023 4:30 PM EDT [facility] Chloride 104 98 - 107 mmol/L 12/23/2023 4:30 PM EDT [facility] Total CO2 29 22 - 29 mmol/L 12/23/2023 4:30 PM EDT [facility] Anion Gap 11 7 - 16 mmol/L 12/23/2023 4:30 PM EDT [facility] Calcium 9.3 8.6 - 10.4 mg/dL 12/23/2023 4:30 PM EDT [facility] Glucose Lvl 97 70 - 99 mg/dL 12/23/2023 4:30 PM EDT [facility] BUN 12 6 - 20 mg/dL 12/23/2023 4:30 PM EDT [facility] Creatinine 0.86 0.51 - 1.30 mg/dL 12/23/2023 4:30 PM EDT [facility] Albumin 4.3 3.5 - 5.2 gm/dL 12/23/2023 4:30 PM EDT [facility] Total Protein 7.4 6.4 - 8.3 gm/dL 12/23/2023 4:30 PM EDT [facility] Bili Total 0.3 0.2 - 1.3 mg/dL 12/23/2023 4:30 PM EDT [facility] ALT 13 <=41 U/L 12/23/2023 4:30 PM EDT [facility] AST 18 <=40 U/L 12/23/2023 4:30 PM EDT [facility] Alk Phos 112 36 - 123 U/L 12/23/2023 4:30 PM EDT [facility] eGFR (CKD-EPIcr 2020) 79 >=60 mL/min/1.7 3 m2 12/23/2023 4:30 PM EDT [facility] Comment:Estimated GFR was ca lculated using the CKD-EPIcr (2020) equation refit without race. The equation is recommended by the National Kidney Foundation - [place] [employer]ph[employer] Task Force. Blood VENOUS BLOOD / Unknown Venipuncture / Unknown 12/23/2023 12:06 PM EDT 12/23/2023 12:06 PM EDT Kathleen Meredith SPIN TABLE OPERATOR CHEMISTRY ORDERABLES Final Result [facility] [place] [address] [facility], [place] [address] [facility] [address] [place] [address] * MM MAMMO DIGITAL JOHANN SCREEN BILAT (11/10/2023 1:50 PM EDT) Anatomical Region Laterality Modality Breast Bilateral Mammography 11/11/2023 8:52 AM EDT Addenda Addendum by Nicolas Mcintyre DO on 11/17/2023 12:20 PM EDT November 17, 2023: Prior [facility] study performed 08/01/2021 has been made available for direct comparison. Stable unremarkable right breast. Adjacent subcentimeter nodules were visualized in the posterior upper outer quadrant on provided 08/01/2021 comparison study. Suspect stable intramammary lymph nodes with benign features. Request continued annual screening evaluation of this patient. Nicolas Mcintyre DO Impressions 11/11/2023 8:52 AM EDT Benign finding ([id number]-[id number]-[id number]) ~ RECOMMENDATION: Routine screening mammogram in 1 year. DISCLAIMER * Any patient with a palpable abnormality, unexplained by breast imaging, should be managed on clinical basis by the attending physician. * Breast imaging has a false negative rate of 15%. * The patient was notified by mail of the results of this examination. *The patient's information was entered into a reminder system with a target due date for the next mammogram, in accordance with the [place] [employer] and the Society of Breast Imaging recommendations. Narrative 11/11/2023 8:52 AM EDT Procedure:MM MAMMO DIGITAL JOHANN SCREEN BILAT ~ Reason for exam: screening, asymptomatic. Z12.31-Encounter for screening mammogram for malignant neoplasm of [id number] ~ MM MAMMO DIGITAL JOHANN SCREEN BILAT Bilateral CC and MLO view(s) were taken. There are scattered fibroglandular densities. Prior study comparison: Compared with prior studies, the most recent being 06/10/19, 01/13/17. Stable right breast exam. No suspicious calcifications. Adjacent indeterminate subcentimeter nodules in the posterior upper outer quadrant, left breast. Additional targeted ultrasound imaging requested. ~ ADDENDUM: ~ Procedure Note Nicolas Mcintyre, - 11/17/2023 Procedure:MM MAMMO DIGITAL JOHANN SCREEN BILAT ~ Reason for exam: screening, asymptomatic. Z12.31-Encounter for screening mammogram for malignant neoplasm of zyikhd-ISX-20-CM ~ MM MAMMO DIGITAL JOHANN SCREEN BILAT Bilateral CC and MLO view(s) were taken. There are scattered fibroglandular densities. Prior study comparison: Compared with prior studies, the most recentbeing 06/10/19, 01/13/17. Stable right breast exam. No suspicious calcifications. Adjacent indeterminate subcentimeter nodules in the posterior upper outerquadrant, left breast. Additional targeted ultrasound imaging requested. ~ ADDENDUM: ~ IMPRESSION: Benign finding (DEX-Xuimtoms-7) ~ RECOMMENDATION: Routine screening mammogram in 1 year. DISCLAIMER * Any patient with a palpable abnormality, unexplained by breast imaging, should be managed on clinical basis by the attending physician. * Breast imaging has a false negative rate of 15%. * The patient was notified by mail of the results of this examination. *The patient's information was entered into a reminder system with atarget due date for the next mammogram, in accordance with the [place] [employer] and the Society of Breast Imaging recommendations. us Julian Cam MD IMG MAMMOGRAPHY ORDERABLES Nish yolanda Result - Final * DIABETES EYE EXAM (01/02/2021) Left Diabetic Retinopathy Not Present Present/Not Present SEP OFFICE Right Diabetic Retinopathy Not Present Present/Not Present SEP OFFICE 01/02/2021 us Historical Provider HEALTH MAINTENANCE Final Res ult SEP OFFICE * HM COLONOSCOPY (02/08/2020) us Historical Provider HEALTH MAINTENANCE Final Res ult SEP OFFICE from Last 3 Months or Most Recently Relevant to Health Maintenance Insurance PPO ANTHEM PPO ANTH PPO ANTHEM PPO ANTHEM PPO ANTHEM PPO Care Teams Etcher Machine Relationship Specialty Start Date End Date Julian [place] [address] [place] [address] PCP - General Internal Medicine 01/26/17 Nicolas Nagel MD [address] [place] [address] [place] [address] Internal Medicine-Cardiovascular Disease 04/02/20
--- OUTSIDE RECORDS SUMMARY | 2025-01-22 20:10 | XMS_ITS | Encounter Summary ---
Author Organization [place] [address] Care Team Providers Care Information Systems Consultant Name Role Phone Julian Cam MD Primary Care Provider [phone] Nicolas Nagel MD Unavailable [phone] Reason for Visit * Reason Comments Medication Refill Encounter Details Date Type Department Care Team (Late st Contact Info) Description 01/02/2025 Refill SEP Andrew [facility] [address] [address] Julian Cam MD [address] [facility] [place] [address] Medication Refill Social History Tobacco Use [...] Date Recorded PHQ-2 Total Score 0 02/09/2024 [facility] [place] of Occupat ional Health - Occupational Stress [...] place to sleep or slept in a longterm (including now)? No 08/27/2022 Sexually Active Control [...] 09/09/2022 1:56 PM Paco Skelton CCMA * Is the person blind [...] Paco Morton CCMA documented in this encounter Miscellaneous Notes * Telephone Encounter - Lorena Gaytan CPhT - 01/04/2025 8:21 AM EDT Lisinopril Refill request deferred to the office: Medication discontinued or inactive on the medication list Trazodone Duplicate refill request. This medication has already been approved within the last 7 days. Refill denied. documented in this encounter Plan of Treatment Upcoming Encounters Date Type Department Care Team (Late st Contact Info) Description 02/15/2025 1:00 PM EDT Hospital Encounter [facility] [address] [place] [address] Coty Arechiga APRN [address] [place] [address] 03/10/2025 9:15 AM EDT Office Visit SEP [facility] [address] [place] [address] Osorio Fitzgerald MD [address] [place] [address] documented as of this encounter Goals [...] as of this encounter Visit Diagnoses Diagnosis Microalbuminuric diabetic nephropathy (HCC) Insomnia, persistent Persistent disorder of initiating or maintaining sleep documented in this encounter Care Teams Information Systems Consultant Relationship Specialty Start Date End Date Julian Cam MD [employer] [facility] [place] [phone] PCP - General Internal Medicine 01/26/17 Nicolas Nagel MD [address] [place] [address] [place] [id number] Internal Medicine-Cardiovascular Disease 04/02/20 documented as of this encounter
--- OUTSIDE RECORDS SUMMARY | 2025-01-22 20:10 | XMS_ITS | Encounter Summary ---
Author Organization [place] [address] Care Team Providers Care Equipment Mechanic Name Role Phone Margarito Ibarra MD Primary Care Provider [phone] Julian Cam MD Primary Care Provider [phone] Nicolas Nagel MD Unavailable [phone] Katelynn Yun RN Unavailable Unavailable Encounter Details Date Type Department Care Team (Late st Contact Info) Description 10/06/2016 Refill SEP Andrew [facility] [place] [address] Julian Cam MD [address] [place] [address] Social History Tobacco Use Types Packs/Day Years [...] on file documented as of this encounter Ordered Prescriptions Prescription Sig Dispense Quantity Refills Last Filled Start Date End Date PARoxetine (PAXIL) 10 mg Oral Tablet Take 1 Tab by mouth daily for 180 days. 30 Tab 5 10/06/2016 03/29/2017 documented in this encounter Plan of Treatment Upcoming Encounters Date Type Department Care Team (Late st Contact Info) Description 02/15/2025 1:00 PM EDT Hospital Encounter [facility] MRI [address] [place] [address] Coty Arechiga APRN [address] [facility] [place] [address] 03/10/2025 9:15 AM EDT Office Visit [facility] [address] [facility] [address] Osorio Fitzgerald MD [address] [facility] [place] [address] documented as of this encounter Goals [...] HEMOGLOBIN A1C < 7.0 Result Component 7.9( 5 10:50 AM EST) No Julian Cam MD Weight < 150 lb (68.04 kg) Weight 167 lb (75.8 kg)( 5 10:59 AM EDT) No Edison Lam MD documented as of this encounter Visit Diagnoses Not on filedocumented in this encounter Additional Health Concerns Infection Onset Date Last Indicated Resolved Time R/O C-Diff 11/30/2019 11/30/2019 11/30/2019 5:25 PM EDT documented as of this encounter Care Teams Equipment Mechanic Relationship Specialty Start Date End Date Margarito Ibarra MD [address] [place] [phone] PCP - General Family Medicine 04/12/15 01/25/17 Julian Cam MD [address] [place] [address] [place] [address] PCP - General Internal Medicine 01/26/17 Nicolas Nagel MD [address] [place] [address] [place] [address] Internal Medicine-Cardiovascular Disease 04/02/20 Katelynn Yun, RN Pmo Analyst Registered Nurse 11/28/20 07/25/21 documented as of this encounter
--- OUTSIDE RECORDS SUMMARY | 2025-01-22 20:10 | XMS_ITS | Encounter Summary ---
Author Organization [place] [address] Care Team Providers Care Electrician Refinery Name Role Phone Julian Cam MD Primary Care Provider [phone] Nicolas Nagel MD Unavailable [phone] Reason for Visit * Reason Comments Medication Refill Encounter Details Date Type Department Care Team (Late st Contact Info) Description 11/23/2024 Refill SEP Andrew [facility] [place] [address] Julian Cam MD [address] [facility] [place] [address] Medication Refill Social History Tobacco Use [...] Date Recorded PHQ-2 Total Score 0 02/09/2024 [facility] [place] of Occupat ional Health - Occupational Stress [...] place to sleep or slept in a long-term (including now)? No 08/27/2022 Sexually Active Control [...] Assessment Author No 09/09/2022 1:56 PM Paco kSelton CCMA * Is the person blind or [...] Refills Last Filled Start Date End Date estradioL (ESTRACE) 1 mg Oral TabletIndications:H ormone replacement therapy Take 1 Tablet by mouth daily. 30 Tablet 11/23/2024 documented in this encounter Plan of Treatment Upcoming Encounters Date Type Department Care Team (Late st Contact Info) Description 02/15/2025 1:00 PM EDT Hospital Encounter [facility] MRI [address] [place] [address] Coty Arechiga APRN [address] [place] [address] 03/10/2025 9:15 AM EDT Office Visit [facility] [address] [address] Osorio Fitzgerald MD [address] [place] [address] documented as of this encounter Goals [...] as of this encounter Visit Diagnoses Diagnosis Hormone replacement therapy documented in this encounter Discontinued Medications Medication Sig Discontinue Reason Start Date End Da te estradioL (ESTRACE) 1 mg Oral TabletIndications:Hormone replacement therapy Take 1 Tablet by mouth daily. 11/10/2024 11/23/2024 documented as of this encounter Care Teams Electrician Refinery Relationship Specialty Start Date End Date Julian Cam MD [employer] [facility] [place] [phone] PCP - General Internal Medicine 01/26/17 Nicolas Nagel MD [address] [place] [address] [place] [id number] Internal Medicine-Cardiovascular Disease 04/02/20 documented as of this encounter
--- OUTSIDE RECORDS SUMMARY | 2025-01-22 20:10 | XMS_ITS | Encounter Summary ---
Author Organization [place] [address] Care Team Providers Care Full Charge Bookkeeper Name Role Phone Julian Cam MD Primary Care Provider [phone] Nicolas Nagel MD Unavailable [phone] Reason for Visit * Reason Onset Date Comments Medication Refill 12/13/2024 Encounter Details Date Type Department Care Team (Late st Contact Info) Description 12/13/2024 Refill SEP Andrew [address] [place] [address] Julian Cam MD [address] [place] [address] Medication Refill Social History Tobacco Use [...] Date Recorded PHQ-2 Total Score 0 02/09/2024 [facility] [place] of Occupat ional Health - Occupational Stress [...] 1:56 PM EDT Paco Morton CCMA * Is the person blind [...] Refills Last Filled Start Date End Date hydroCHLOROthiazide 25 mg Oral Tablet Take 1 Tablet by mouth daily. 30 Tablet 12/13/2024 documented in this encounter Plan of Treatment Upcoming Encounters Date Type Department Care Team (Late st Contact Info) Description 02/15/2025 1:00 PM EDT Hospital Encounter [facility] [place] [address] [place] [address] Coty Arechiga APRN [address] [place] [address] 03/10/2025 9:15 AM EDT Office Visit [facility] [address] [place] [address] Osorio Fitzgerald MD [address] [facility] [place] [address] documented as of this encounter Goals [...] Tablet Take 1 Tablet by mouth daily. Reorder 12/02/2024 12/13/2024 documented as of this encounter Care Teams Full Charge Bookkeeper Relationship Specialty Start Date End Date Julian Cam MD [address] [facility] [place] [phone] PCP - General Internal Medicine 01/26/17 Nicolas Nagel MD [address] [place] [address] [place] [id number] Internal Medicine-Cardiovascular Disease 04/02/20 documented as of this encounter
--- OUTSIDE RECORDS SUMMARY | 2025-01-22 20:10 | XMS_ITS | Encounter Summary ---
Author Organization [place] [address] Care Team Providers Care Universal Grinder Operator Name Role Phone Julian Cam MD Primary Care Provider [phone] Nicolas Nagel MD Unavailable [phone] Reason for Visit * Reason Onset Date Comments Medication Refill 12/14/2024 Encounter Details Date Type Department Care Team (Late st Contact Info) Description 12/14/2024 Refill SEP Andrew [address] [place] [address] Kathleen Meredith APRN [address] [place] [address] Medication Refill Social History Tobacco Use Types [...] Date Recorded PHQ-2 Total Score 0 02/09/2024 [facility] [place] of Occupat ional Health - Occupational Stress [...] place to sleep or slept in a snf (including now)? No 08/27/2022 Sexually Active Control [...] Refills Last Filled Start Date End Date rosuvastatin (CRESTOR) 20 mg Oral TabletIndications:Ty pe 2 diabetes mellitus without complication, without long-term current use of insulin (HCC),Mixed hyperlipidemia Take 1 Tablet by mouth nightly. 90 Tablet 3 12/14/2024 documented in this encounter Plan of Treatment Upcoming Encounters Date Type Department Care Team (Late st Contact Info) Description 02/15/2025 1:00 PM EDT Hospital Encounter [facility] MRI [address] [place] [address] Coty Arechiga APRN [address] [place] [address] 03/10/2025 9:15 AM EDT Office Visit [facility] [address] [place] [address] Osorio Fitzgerald MD [address] [place] [address] documented as of this encounter [...] as of this encounter Visit Diagnoses Diagnosis Type 2 diabetes mellitus without complication, without long-term current use of insulin (HCC) Mixed hyperlipidemia documented in this encounter Discontinued Medications Medication Sig Discontinue Reason Start Date End Da te rosuvastatin (CRESTOR) 20 mg Oral TabletIndications:Type 2 diabetes mellitus without complication, without long-term current use of insulin (HCC),Mixed hyperlipidemia Take 1 Tablet by mouth nightly. Reorder 12/10/2023 12/14/2024 documented as of this encounter Care Teams Universal Grinder Operator Relationship Specialty Start Date End Date Julian Cam MD [address] [place] [address] [place] [phone] PCP - General Internal Medicine 01/26/17 Nicolas Nagel MD [address] [place] [address] [address] [place], [place] [address] Internal Medicine-Cardiovascular Disease 04/02/20 documented as of this encounter
--- OUTSIDE RECORDS SUMMARY | 2025-01-22 20:10 | XMS_ITS | Encounter Summary ---
Author Organization [place] [address] Care Team Providers Care Choker Setter Name Role Phone Julian Cam MD Primary Care Provider Nicolas Nagel MD Unavailable [phone] Reason for Visit * Reason Comments Medication Refill Encounter Details Date Type Department Care Team (Late st Contact Info) Description 12/12/2024 Refill [facility] [address] [place] [address] Katelynn Aleman, DEVELOPMENT CHEMIST [address] [place] [address] Medication Refill Social History Tobacco Use [...] Date Recorded PHQ-2 Total Score 0 02/09/2024 [facility] [place] of Occupat ional Health - Occupational Stress [...] place to sleep or slept in a usp (including now)? No 08/27/2022 Sexually Active Control [...] Refills Last Filled Start Date End Date pantoprazole (PROTONIX) 40 mg Oral Tablet, Delayed Release (E.C.)Indications:G astroesophageal reflux disease without esophagitis Take 1 Tablet by mouth 2 times daily. 200 Tablet 2 12/14/2024 documented in this encounter Miscellaneous Notes * Telephone Encounter - Azalia Nance CPhT - 12/14/2024 8:49 AM EDT Pantoprazole - Future Visit: N/A Last Assessed Visit: 08/12/24 Follow-Up Date: 08/12/25 All protocols passed. Refills approved and sent to requesting pharmacy. Routed to [facility] if applicable. documented in this encounter Plan of Treatment Upcoming Encounters Date Type Department Care Team (Late st Contact Info) Description 02/15/2025 1:00 PM EDT Hospital Encounter [facility] [place] [address] [place] [address] Coty Arechiga, DEVELOPMENT CHEMIST [address] [place] [address] 03/10/2025 9:15 AM EDT Office Visit [facility] [address] [place] [address] Osorio Fitzgerald MD [address] [place] [address] documented as of this encounter Goals [...] as of this encounter Visit Diagnoses Diagnosis Gastroesophageal reflux disease without esophagitis Esophageal reflux documented in this encounter Discontinued Medications Medication Sig Discontinue Reason Start Date End Da te pantoprazole (PROTONIX) 40 mg Oral Tablet, Delayed Release (E.C.)Indications:Gastroe sophageal reflux disease without esophagitis Take 1 Tablet by mouth 2 times daily. 08/12/2024 12/14/2024 documented as of this encounter Care Teams Choker Setter Relationship Specialty Start Date End Date Julian Cam MD [address] [facility] [place] [address] PCP - General Internal Medicine 01/26/17 Nicolas Nagel MD [address] [place] [address] [place] [address] Internal Medicine-Cardiovascular Disease 04/02/20 documented as of this encounter
--- OUTSIDE RECORDS SUMMARY | 2025-01-22 20:10 | XMS_ITS | Encounter Summary ---
Author [place] [address] Care Team Providers Care Flat Surfacer Jewel Name Role Phone Julian Cam MD Primary Care Provider [phone] Nicolas Nagel MD Unavailable [phone] Reason for Visit * Reason Onset Date Comments Medication Refill 01/03/2025 Encounter Details Date Type Department Care Team (Late st Contact Info) Description 01/03/2025 Refill [facility] [address] [address] Julian Cam MD [address] [place] [address] Medication Refill Social History Tobacco Use [...] Date Recorded PHQ-2 Total Score 0 02/09/2024 [facility] [place] of Occupat ional Health - Occupational Stress [...] place to sleep or slept in a care home (including now)? No 08/27/2022 Sexually Active Control [...] Refills Last Filled Start Date End Date traZODone (DESYREL) 50 mg Oral TabletIndications: Insomnia, persistent Take 1 Tablet by mouth nightly as needed. for sleep 30 Tablet 2 01/03/2025 documented in this encounter Plan of Treatment Upcoming Encounters Date Type Department Care Team (Late st Contact Info) Description 02/15/2025 1:00 PM EDT Hospital Encounter [facility] [place] [facility] [address] [place] [address] Coty Arechiga APRN [address] [place] [address] 03/10/2025 9:15 AM EDT Office Visit [facility] [address] [place] [address] Osorio Fitzgerald MD [address] [place] [address] documented as of this encounter Goals [...] as of this encounter Visit Diagnoses Diagnosis Insomnia, persistent Persistent disorder of initiating or maintaining sleep documented in this encounter Discontinued Medications Medication Sig Discontinue Reason Start Date End Da te traZODone (DESYREL) 50 mg Oral TabletIndications:Insomn ia, persistent Take 1 Tablet by mouth nightly as needed. for sleep Reorder 10/03/2024 01/03/2025 documented as of this encounter Care Teams Flat Surfacer Jewel Relationship Specialty Start Date End Date Julian Cam MD [address] [facility] [place] [id number] PCP - General Internal Medicine 01/26/17 Nicolas Nagel MD [address] [place] [address] [place] [id number] Internal Medicine-Cardiovascular Disease 04/02/20 documented as of this encounter
--- OUTSIDE RECORDS SUMMARY | 2025-01-22 20:10 | XMS_ITS | Encounter Summary ---
Author Organization [place] [address] Care Team Providers Care Helicopter Specialist Name Role Phone Julian Cam MD Primary Care Provider [phone] Nicolas Nagel MD Unavailable [phone] Reason for Visit * Reason Comments Medication Refill Encounter Details Date Type Department Care Team (Late st Contact Info) Description 12/12/2024 Refill [facility] [address] Julian Cam MD [address] [facility] [address] Medication Refill Social History Tobacco Use [...] Date Recorded PHQ-2 Total Score 0 02/09/2024 [facility] [place] of Occupat ional Health - Occupational Stress [...] place to sleep or slept in a [place] [facility] [place] (including now)? No 08/27/2022 Sexually Active Control [...] Refills Last Filled Start Date End Date busPIRone (BUSPAR) 10 mg Oral TabletIndications:G eneralized anxiety disorder Take 1 Tablet by mouth 2 times daily. 60 Tablet 12/13/2024 documented in this encounter Plan of Treatment Upcoming Encounters Date Type Department Care Team (Late st Contact Info) Description 02/15/2025 1:00 PM EDT Hospital Encounter [facility] MRI [address] [place] [address] Coty Arechiga APRN [address] [place] [address] 03/10/2025 9:15 AM EDT Office Visit [facility] [address] [place] [address] Osorio Fitzgerald MD [address] [place] [address] documented as of this encounter [...] as of this encounter Visit Diagnoses Diagnosis Generalized anxiety disorder documented in this encounter Discontinued Medications Medication Sig Discontinue Reason Start Date End Da te busPIRone (BUSPAR) 10 mg Oral TabletIndications:Genera lized anxiety disorder Take 1 Tablet by mouth 2 times daily. 10/26/2024 12/13/2024 documented as of this encounter Care Teams Helicopter Specialist Relationship Specialty Start Date End Date Julian Cam MD [employer] [facility] [place] [address] PCP - General Internal Medicine 01/26/17 Nicolas Nagel MD [address] [place] [address] [place] [id number] Internal Medicine-Cardiovascular Disease 04/02/20 documented as of this encounter
--- OUTSIDE RECORDS SUMMARY | 2025-01-22 20:10 | XMS_ITS | Encounter Summary ---
Author Organization [facility] Address [address] [address] Care Team Providers Care Cane Flume Feeding Machine Operator Name Role Phone Julian Cam MD Primary Care Provider [phone] Nicolas Nagel MD Unavailable [phone] Reason for Visit * Reason Comments Medication Refill Encounter Details Date Type Department Care Team (Late st Contact Info) Description 12/14/2024 Refill [facility] [address] [address] Bob Gibbons MD [address] [place] [address] Medication Refill Social History Tobacco Use Types [...] Date Recorded PHQ-2 Total Score 0 02/09/2024 [facility] [place] of Occupat ional Health - Occupational Stress [...] 1:56 PM EDT Kathryn Morton CCMA * Because of a physical, [...] Date Author No 09/09/2022 1:56 PM EDT Kathryn Morton CCMA documented in this encounter Ordered Prescriptions Prescription Sig Dispense Quantity Refills Last Filled Start Date End Date cetirizine (ZYRTEC) 10 mg Oral TabletIndications:R hinosinusitis Take 1 Tablet by mouth daily. 30 Tablet 5 12/14/2024 documented in this encounter Miscellaneous Notes * Telephone Encounter - Annie Maldonado MA - 12/14/2024 12:38 PM EDT Patient request refill cetirizine (ZYRTEC) SKYLAR: 06/29/24 documented in this encounter Plan of Treatment Upcoming Encounters Date Type Department Care Team (Late st Contact Info) Description 02/15/2025 1:00 PM EDT Hospital Encounter [facility] [place] [address] [place] [address] Coty Arechiga, OLGA [address] [facility] [place] [address] 03/10/2025 9:15 AM EDT Office Visit [facility] [address] [place] [address] Osorio Fitzgerald MD [address] [place] [address] documented as of this encounter Goals Goal [...] as of this encounter Visit Diagnoses Diagnosis Rhinosinusitis Unspecified sinusitis (chronic) documented in this encounter Discontinued Medications Medication Sig Discontinue Reason Start Date End Da te cetirizine (ZYRTEC) 10 mg Oral TabletIndications:Rhinos inusitis TAKE 1 TABLET BY MOUTH EVERY DAY. 12/24/2020 12/14/2024 documented as of this encounter Care Teams Cane Flume Feeding Machine Operator Relationship Specialty Start Date End Date Julian Cam MD [address] [place] [address] PCP - General Internal Medicine 01/26/17 Nicolas Nagel MD [address] [place] [address] [place] [address] Internal Medicine-Cardiovascular Disease 04/02/20 documented as of this encounter
--- OUTSIDE RECORDS SUMMARY | 2025-01-22 20:10 | XMS_ITS | Encounter Summary ---
Author Organization [place] [address] Care Team Providers Care Adult Day Care Worker Name Role Phone Felicia Vilchis MD Primary Care Provider [phone] Nicolas Nagel MD Unavailable [phone] Reason for Visit * Reason Onset Date Comments Refill 01/10/2025 Med refill Encounter Details Date Type Department Care Team (Late st Contact Info) Description 01/10/2025 Telephone [facility] [address] [place] [address] Felicia Vilchis MD [address] [place] [address] Refill (Med refill ) Social History Tobacco Use Types Packs/Day Years [...] Date Recorded PHQ-2 Total Score 0 02/09/2024 [facility] of Occupat ional Health - Occupational Stress [...] place to sleep or slept in a fci (including now)? No 08/27/2022 Sexually Active Control [...] of Assessment Author No 09/09/2022 1:56 PM EDPaco Reyes CCMA * Is the person blind or does he/she have serious difficulty seeing even when wearing glasses? Answer Date of Assessment Author No 09/09/2022 1:56 PM EDT Paco Morton CCMA * Does this person have serious difficulty walking or climbing stairs? Answer Date of Assessment Author No 09/09/2022 1:56 PM EDT Praveen Paco LASHAWN Regalado * Does this person have difficulty dressing or bathing? Answer Date of Assessment Author No 09/09/2022 1:56 PM EDT Praveen Paco LASHAWN Regalado * Because of a physical, mental or emotional condition, does this person have difficulty doing errands alone such as visiting a doctor's office or shopping? Answer Date of Assessment Author No 09/09/2022 1:56 PM EDT PraveenPaco LASHAWN Regalado documented as of this encounter Mental Status * Because of a physical, mental or emotional condition, does this person have serious difficulty concentrating, remembering or making decisions? Answer Entry Date Author No 09/09/2022 1:56 PM EDT Paco Morton CCMA documented in this encounter Ordered Prescriptions Prescription Sig Dispense Quantity Refills Last Filled Start Date End Date lisinopriL (PRINIVIL;ZESTRIL) 5 mg Oral TabletIndications: Microalbuminuric diabetic nephropathy (HCC) Take 1 Tablet by mouth daily for 360 days. 90 Tablet 3 01/10/2025 01/05/2026 lisinopriL (PRINIVIL;ZESTRIL) 5 mg Oral TabletIndications: Microalbuminuric diabetic nephropathy (HCC) Take 1 Tablet by mouth daily. 30 Tablet 2 01/10/2025 01/10/2025 documented in this encounter Miscellaneous Notes * Addendum Note - Felicia Vilchis MD - 01/10/2025 1:37 PM EDTAddended by: FELICIA VILCHIS on: 01/10/2025 01:37 PM Modules accepted: Orders * Telephone Encounter - Barak Gonzales MA - 01/10/2025 1:34 PM EDT fyi * Telephone Encounter - Barak Gonzales MA - 01/10/2025 1:33 PM EDT Spoke with pt and she never stopped this medication, she sts her cough is fine and the cough was from getting her throat stretched. Meds have been sent for a refill. * Telephone Encounter - Felicia Vilchis MD - 01/10/2025 1:30 PM EDT It appears this was discontinued in June due to concerns it was causing chronic cough. Does she want to re-start it? (Did she ever stop it?) * Telephone Encounter - Barak Gonzales MA - 01/10/2025 1:11 PM EDT Please advise, in her chart is says discontinued due to side effects. * Telephone Encounter - Aicha Valdez - 01/10/2025 12:30 PM EDT Select the most appropriate reason for this telephone message: Medication Refill Who is requesting the refill: Patient Medication(s)Name/Dosage/Frequency: Disp Refills Start End lisinopriL (PRINIVIL;ZESTRIL) 5 mg Oral Tablet [Pharmacy Med Name: LISINOPRIL 5 MG TABS 5 Tablet] 90 Tablet 3 01/04/2025 -- Request refused: Refill not appropriate Sig - Route: Take 1 Tablet by mouth once daily. - Oral Renewals Renewal provider: Felicia Vilchis MD Did patient contact the pharmacy first: pharmacy telling pt that she's out of refills for this one and to call us How many days left on hand: 0 Future appt date w/ prescribing provider: n/a Pharmacy & Location: [facility] [place] [address] - [address] [facility] - [phone] Return Method of Communication: Phone Call Additional Information: med not pended - it's not clear if this was ever actually called in since there were multiple attempts by pharmacy to call this in. I see multiple denials/ refusals stating it's not appropriate/ duplicate, but not seeing where this was actually called in and for some reason it's not on pt's active medication list. Please advise of this status. documented in this encounter Plan of Treatment Upcoming Encounters Date Type Department Care Team (Late st Contact Info) Description 02/15/2025 1:00 PM EDT Hospital Encounter [facility] [address] [place] [address] Coty Arechiga APRN [address] [place] [address] 03/10/2025 9:15 AM EDT Office Visit [facility] [address] [place] [address] Osorio Fitzgerald MD [address] [place] [address] documented as of this encounter Goals Goal Patient Goal Type Associated Problems Recent Progress Patient-Stated? Author Blood Pressure < 140/90 Blood Pressure 115/73(2024 8:56 AM EDT) No Felicia Vilchis MD BMI (Calculated) < 30 General 37.7(08/12/19 25 1:37 PM EST) No Felicia Vilchis MD Eat better, exercise, reach an ideal body weight General On track( 021 4:33 PM EDT) No Elsie Desouza CCMA HEMOGLOBIN A1C < 7.0 Result Component 7.9( 5 10:50 AM EST) No Felicia Vilchis MD Weight < 150 lb (68.04 kg) Weight 167 lb (75.8 kg)( 5 10:59 AM EDT) No Edison Lam MD documented as of this encounter Visit Diagnoses Diagnosis Microalbuminuric diabetic nephropathy (HCC) documented in this encounter Discontinued Medications Medication Sig Discontinue Reason Start Date End Da te lisinopriL (PRINIVIL;ZESTRIL) 5 mg Oral TabletIndications:Microal buminuric diabetic nephropathy (HCC) Take 1 Tablet by mouth daily. Reorder 01/10/2025 01/10/2025 documented as of this encounter Care Teams Adult Day Care Worker Relationship Specialty Start Date End Date Felicia Vilchis MD [address] [place] [id number] PCP - General Internal Medicine 01/26/17 Nicolas Nagel MD [address] [place] [address] [place] [address] Internal Medicine-Cardiovascular Disease 04/02/20 documented as of this encounter
[2025-01-22] MEDS: ACETAMINOPHEN 500MG TAB 1000 MG PO (20:23)
--- NOTE | 2025-01-22 20:23 | XR_ITS ---
PROCEDURE INFORMATION: Exam: XR Chest Exam date and time: 01/22/2025 8:22 PM Age: 54 years old Clinical indication: Cough and fever; Additional info: Cough, fever TECHNIQUE: Imaging protocol: Radiologic exam of the chest. Views: 2 views. COMPARISON: CR XR CHEST PORTABLE 01/11/2021 11:09 PM FINDINGS: Tubes, catheters and devices: Spinal stimulator in place. Lungs: Unremarkable. No consolidation. There is no focal mass. Pleural spaces: Unremarkable. No pleural effusion. No pneumothorax. Heart/Mediastinum: Unremarkable. No cardiomegaly. Bones/joints: Unremarkable. There is no acute fracture present. IMPRESSION: No evidence for acute cardiac or pulmonary process.
[2025-01-22] MEDS: IBUPROFEN 800 MG TABLET PO (20:24)
--- NOTE | 2025-01-22 20:30 | HMH.EDGENADL ---
Discharge Plan Disposition Patient Disposition: Home, Self-Care Condition: Good Prescriptions Prescriptions: New prednisone 10 mg tablet 20 mg PO DAILY 3 Days Qty: 6 0RF No Action trazodone 50 mg tablet 50 mg PO DAILY hydrochlorothiazide 25 mg tablet 25 mg PO DAILY lisinopril 5 mg tablet 5 mg PO DAILY buspirone 5 mg tablet 10 mg PO DAILY buspirone 10 mg tablet PO DAILY Patient Comments: TAKE 1 TABLET BY MOUTH 2 TIMES DAILY. rosuvastatin 20 mg tablet PO DAILY Patient Comments: TAKE 1 TABLET BY MOUTH NIGHTLY. desvenlafaxine succinate 50 mg tablet extended release 24 hr PO DAILY Patient Comments: TAKE 1 TABLET BY MOUTH DAILY. Jardiance 10 mg tablet PO DAILY Patient Comments: TAKE 1 TABLET BY MOUTH ONCE DAILY. Wegovy 0.25 mg/0.5 mL pen injector SQ Patient Comments: SUBCUTANEOUS (INJECT UNDER THE SKIN) 0.5 ML ONCE A WEEK FOR 4 DOSES. Ozempic 2 mg/dose (8 mg/3 mL) pen injector SQ WEEKLY Patient Comments: INJECT 2 MG SUBCUTANEOUSLY ONCE WEEKLY. fluconazole 150 mg tablet 150 mg PO WEEKLY Qty: 4 0RF Rx Instructions: take one tablet weekly for 4 weeks. estradiol [Estrace] 0.01 % (0.1 mg/gram) cream 1 g vaginal .twice weekly Qty: 42.5 2RF Rx Instructions: blueberry size amount twice weekly estradiol 1 mg tablet See Rx Instructions .ROUTE .COMPLEX Qty: 90 4RF Dose Instruction: Take 1 Tablet by mouth once daily. Rx Instructions: Take 1 Tablet by mouth once daily. medroxyprogesterone 2.5 MG tablet 2.5 mg PO DAILY omeprazole magnesium 20 MG tablet,delayed release (DR/EC) 40 mg PO BID Referrals Follow up/Referrals: Julian Cam [Primary Care Provider, Medical] - See instructions Activity Restrictions/Add. Instructions Additional Instructions/Restrictions: Take Tylenol and ibuprofen at home for fevers. You can use Mucinex or another upper respiratory medication to help with your nasal congestion and sputum. I will send you with 3 days of prednisone which you can start tomorrow. Return to the emergency department or your primary care provider if you continue to have fevers for more than 7 days. Or if you have acute worsening chest pain or shortness of breath. Clinical Impressions Clinical Impression: Chest pain, Chest congestion, Nasal congestion Print Language Print Language: Luxembourgish Discharge ED Provider: Nicolette Ryo General Adult HPI <SUZETTE Duran - Last Filed: 01/22/25 22:32> General Chief complaint: Upper Respiratory Infection Stated complaint: SOA; Cough Time Seen by Provider: 01/22/25 20:04 Mode of Arrival: Ambulatory Source of Information: Patient Description of Symptoms (Recalled from ER Triage Doc. by RN): Cough, fever I feel like I have pleurisy. I get it twice a year History of Present Illness HPI narrative: Patient presents with cough and fever. She reports that twice a year she gets pleurisy and similar symptoms. Patient is complaining of some left-sided chest pain and shortness of breath. She reports she has had sinus pain and headache as well. She has tried taking Tylenol and an antihistamine. Denies any vomiting. MD complaint: Fever, cough Onset (ago): day(s) Radiation: non-radiation Severity: moderate Consistency: intermittent Relieving factors: none Exacerbating factors: none Associated symptoms: denies other symptoms Treatments prior to arrival: other (Tylenol) Related Data Home Medications ?Medication ?Instructions ?Recorded ?Confirmed hydrochlorothiazide 25 mg tablet 25 mg PO DAILY BP 08/01/21 10/12/23 lisinopril 5 mg tablet 5 mg PO DAILY BP 08/01/21 10/12/23 trazodone 50 mg tablet 50 mg PO DAILY SLEEP 08/01/21 10/12/23 medroxyprogesterone 2.5 mg tablet 2.5 mg PO DAILY . 09/25/21 10/12/23 omeprazole magnesium 20 mg 40 mg PO BID Reflux/Acid reflux 09/25/21 10/12/23 tablet,delayed release buspirone 10 mg tablet mg PO DAILY 10/12/23 10/12/23 buspirone 5 mg tablet 10 mg PO DAILY MOOD 10/12/23 10/12/23 desvenlafaxine succinate 50 mg mg PO DAILY 10/12/23 10/12/23 tablet,extended release 24 hr empagliflozin 10 mg tablet mg PO DAILY 10/12/23 10/12/23 (Jardiance) rosuvastatin 20 mg tablet mg PO DAILY 10/12/23 10/12/23 semaglutide (weight loss) 0.25 mg SQ 10/12/23 10/12/23 mg/0.5 mL subcutaneous pen injector (Wegovy) semaglutide 2 mg/dose (8 mg/3 mL) mg SQ WEEKLY 10/12/23 10/12/23 subcutaneous pen injector (Ozempic) Previous Rx's ?Medication ?Instructions ?Recorded estradiol 0.01% (0.1 mg/gram) 1 g vaginal .twice weekly #42.5 10/12/23 vaginal cream (Estrace) grams fluconazole 150 mg tablet 150 mg PO WEEKLY 4 doses #4 tabs 10/12/23 estradiol 1 mg tablet See Rx Instructions .Route 01/15/24 .COMPLEX #90 tabs prednisone 10 mg tablet 20 mg (2 x 10 mg) PO DAILY 3 days 01/22/25 #6 tabs Allergies Allergy/AdvReac Type Severity Reaction Status Date / Time No Known Allergies Allergy Verified 10/12/23 14:59 PFSH <SUZETTE Duran - Last Filed: 01/22/25 22:32> [facility] Disclaimer: The information contained in this section may have been updated after the patient was seen, as this information can be updated by other users. 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 current occupational exposures/hazards: No caffeine: No Have you lived/traveled outside [place] in past 30 days?: No Contact w/someone who lives/traveled outside US past 30 days?: No Exposure to someone with infectious disease in past 14 days?: No Do you have a fever (greater than 100.4 F or 38 C)?: No Have you tested positive for COVID-19?: No Exposed to someone with COVID-19 in past 14 days?: No Do you have a sore throat?: No Do you have a cough?: No Do you have any weakness?: No Do you have any diarrhea?: No Are you experiencing any unusual bleeding?: No Do you have any muscle aches/pain?: No Do you have any abdominal pain?: No Are you experiencing loss of taste or smell?: No Other Medical History Have you received the Flu Vaccine for this season: No Have you received the Pneumonia Vaccine: No <SUZETTE Duran - Last Filed: 01/22/25 22:32> ROS Obtained: Yes Systems reviewed as appropriate & no additional complaints except as documented Physical Exam <SUZETTE Duran Last Filed: 01/22/25 22:32> General General appearance: alert and in no apparent distress Head Head exam: atraumatic and normocephalic Eye Eye exam: Present normal appearance and EOMI ENT ENT exam: Present normal exam, normal oropharynx, mucous membranes moist, TM's normal bilaterally and normal external ear exam Chest Chest inspection: Present symmetric chest wall rise Respiratory Respiratory exam: Present normal lung sounds bilaterally; Absent wheezes or stridor Cardiovascular Cardiovascular exam: Present regular rate and normal rhythm; Absent systolic murmur Extremities Exam Extremities exam: Present full ROM Neurological Exam Neurological exam: Present alert and oriented X3 Psychiatric Psychiatric exam: Present normal affect and normal mood Skin Skin exam: Present warm, dry and intact Medical Decision Making <SUZETTE Duran Last Filed: 01/22/25 22:32> Medical Records Screening: Per USPSTF and CDC recommendations, given the prevalence of disease in our region, it is our hospital?s policy to screen for HIV and viral Hepatitis for all patients aged 18 and over and those with ongoing risk factors. Dayron Inquiry Pt receiving controlled substance: No Vital Signs: 01/22/25 20:11 01/22/25 20:25 01/22/25 20:30 Temperature 102 F H Temperature Source Oral Pulse Rate 99 H Pulse Rate [Right Radial] 97 H Respiratory Rate 16 Blood Pressure 126/77 Blood Pressure [Right Arm] 131/76 Blood Pressure Mean [Right Arm] 94 Blood Pressure Source [Right Arm] Automatic Cuff Blood Pressure Position [Right Arm] Supine 02 Sat by Pulse Oximetry 98 98 98 Oxygen Delivery Method Room Air Room Air 01/22/25 20:45 01/22/25 21:00 01/22/25 21:30 Temperature Temperature Source Pulse Rate 99 H 98 H 90 Pulse Rate [Right Radial] Respiratory Rate Blood Pressure 113/72 111/66 Blood Pressure [Right Arm] Blood Pressure Mean [Right Arm] Blood Pressure Source [Right Arm] Blood Pressure Position [Right Arm] 02 Sat by Pulse Oximetry 97 94 L 96 Oxygen Delivery Method 01/22/25 22:00 01/22/25 22:30 01/22/25 22:30 Temperature Temperature Source Pulse Rate 94 H 90 97 H Pulse Rate [Right Radial] Respiratory Rate Blood Pressure 116/69 105/68 L Blood Pressure [Right Arm] Blood Pressure Mean [Right Arm] Blood Pressure Source [Right Arm] Blood Pressure Position [Right Arm] 02 Sat by Pulse Oximetry 93 L 95 Oxygen Delivery Method 01/22/25 23:00 01/22/25 23:21 Temperature 97.9 F Temperature Source Pulse Rate 96 H 90 Pulse Rate [Right Radial] Respiratory Rate 18 Blood Pressure 108/72 L 108/72 L Blood Pressure [Right Arm] Blood Pressure Mean [Right Arm] Blood Pressure Source [Right Arm] Blood Pressure Position [Right Arm] 02 Sat by Pulse Oximetry 95 Oxygen Delivery Method Room Air Lab Data Lab Results 01/22/25 20:05: SARS-CoV-2 (PCR) Not detected, Influenza A Untype (PCR) Not detected, Influenza Type B (PCR) Not detected 01/22/25 20:53: WBC 2.6 L, RBC 4.31, Hgb 13.0, Hct 37.7, MCV 87.5, MCH 30.2, MCHC 34.5, RDW 13.4, Plt Count 194, MPV 9.9, Neut % (Auto) 71.1, Lymph % (Auto) 20.0, [place] % (Auto) 6.5, Eos % (Auto) 0.4, Baso % (Auto) 0.8, Neut # (Auto) 1.9, Lymph # (Auto) 0.5 L, [place] # (Auto) 0.2, Eos # (Auto) 0.0, Baso # (Auto) 0.0, Total Counted 100, Neutrophils % (Manual) 51, Band Neutrophils % 9 H, Lymphocytes % (Manual) 29, Monocytes % (Manual) 11 H, D-Dimer 4.76 H, Sodium 132 L, Potassium 3.7, Chloride 99, Carbon Dioxide 27, Anion Gap 9.7, BUN 9, Creatinine 0.70, Estimated Creat Clear 104, Estimated GFR 87, Est GFR ( Amer) 105, Glucose 107 H, Calcium 8.9, Total Bilirubin 0.3, AST 89 H, ALT 59, Alkaline Phosphatase 102, Troponin I < 0.01, Total Protein 6.4, Albumin 3.8, Globulin 2.6, Albumin/Globulin Ratio 1.5 01/22/25 20:53 01/22/25 20:53 Orders (Tests/Meds): ED MEDICATIONS Discontinued Medications Generic Name Dose Route Start Last Admin Trade Name Barberq PRN Reason Stop Dose Admin Acetaminophen 1,000 mg 01/22/25 20:16 01/22/25 20:23 Acetaminophen 500mg Tab PO 01/22/25 20:17 1,000 mg ONCE ONE Administration Albuterol/Ipratropium 3 ml 01/22/25 20:47 01/22/25 22:17 Ipratropium/Albuterol 3 Ml Neb IH 01/22/25 20:48 3 ml ONCE ONE Administration Dexamethasone Sodium Phosphate 10 mg 01/22/25 20:52 01/22/25 21:02 Dexamethasone 4mg/Ml 1ml Vial IV 01/22/25 20:53 10 mg ONCE ONE Administration Ibuprofen 800 mg 01/22/25 20:22 01/22/25 20:24 Ibuprofen 800 Mg Tablet PO 01/22/25 20:23 800 mg ONCE ONE Administration Iopamidol 80 ml 01/22/25 22:30 01/22/25 22:31 Iopamidol-370 (76%);100ml Bottle IV 01/22/25 22:31 80 ml ONCE ONE Administration Sodium Chloride 50 ml 01/22/25 22:30 01/22/25 22:30 0.9 % Sodium Chloride 50 Ml Vial IV 01/22/25 22:31 50 ml ONCE ONE Administration Sodium Chloride 10 ml 01/22/25 22:30 01/22/25 22:31 Sodium Chloride 0.9% 10ml Syr (Rad Only) IV 02/21/25 22:29 10 ml NEEDED PRN Administration Maintain IV Site ORDERS Category Date Time Status CT angio chest PE protocol Stat Cat Scan 01/22/25 21:54 Completed Chest XR 2 view (NOT portable) [XR chest 2V] Stat Exams 01/22/25 20:23 Completed CBC w/Auto Diff [Complete Blood Count Auto Diff] Stat Lab 01/22/25 20:53 Completed CMP [Comprehensive Metabolic Panel] Stat Lab 01/22/25 20:53 Completed D-Dimer Stat Lab 01/22/25 20:53 Completed Rapid PCR Covid and Flu A/B Stat Lab 01/22/25 20:05 Completed Trop I [Troponin I] Stat Lab 01/22/25 20:53 Completed Medical Decision Narrative: In summary patient is a 54-year-old who presents the emergency department for evaluation of cough and fever. Patient is hemodynamically upon arrival, febrile. Unremarkable physical exam. Differential diagnosis includes pneumonia, viral respiratory infection, bronchitis, pulmonary embolism. Initial workup will be conducted with chest x-ray, COVID flu swab, labs, D-dimer, troponin, EKG. Initial inventions include Tylenol and ibuprofen. Initial workup reviewed by la D-dimer significantly elevated, chest x-ray and other labs are unremarkable. CTA ordered. Patient signed out to Dr. Roy pending CTA results. <Nicolette Roy, DO - Last Filed: 01/25/25 22:25> Medical Records Medical records reviewed: Yes I reviewed the patient's medical records. Vital Signs: 01/22/25 20:11 01/22/25 20:25 01/22/25 20:30 Temperature 102 F H Temperature Source Oral Pulse Rate 99 H Pulse Rate [Right Radial] 97 H Respiratory Rate 16 Blood Pressure 126/77 Blood Pressure [Right Arm] 131/76 Blood Pressure Mean [Right Arm] 94 Blood Pressure Source [Right Arm] Automatic Cuff Blood Pressure Position [Right Arm] Supine 02 Sat by Pulse Oximetry 98 98 98 Oxygen Delivery Method Room Air Room Air 01/22/25 20:45 01/22/25 21:00 01/22/25 21:30 Temperature Temperature Source Pulse Rate 99 H 98 H 90 Pulse Rate [Right Radial] Respiratory Rate Blood Pressure 113/72 111/66 Blood Pressure [Right Arm] Blood Pressure Mean [Right Arm] Blood Pressure Source [Right Arm] Blood Pressure Position [Right Arm] 02 Sat by Pulse Oximetry 97 94 L 96 Oxygen Delivery Method 01/22/25 22:00 01/22/25 22:30 01/22/25 22:30 Temperature Temperature Source Pulse Rate 94 H 90 97 H Pulse Rate [Right Radial] Respiratory Rate Blood Pressure 116/69 105/68 L Blood Pressure [Right Arm] Blood Pressure Mean [Right Arm] Blood Pressure Source [Right Arm] Blood Pressure Position [Right Arm] 02 Sat by Pulse Oximetry 93 L 95 Oxygen Delivery Method 01/22/25 23:00 01/22/25 23:21 Temperature 97.9 F Temperature Source Pulse Rate 96 H 90 Pulse Rate [Right Radial] Respiratory Rate 18 Blood Pressure 108/72 L 108/72 L Blood Pressure [Right Arm] Blood Pressure Mean [Right Arm] Blood Pressure Source [Right Arm] Blood Pressure Position [Right Arm] 02 Sat by Pulse Oximetry 95 Oxygen Delivery Method Room Air Lab Data Lab results reviewed: Yes I reviewed the patient's lab results. Lab Results 01/22/25 20:05: SARS-CoV-2 (PCR) Not detected, Influenza A Untype (PCR) Not detected, Influenza Type B (PCR) Not detected 01/22/25 20:53: WBC 2.6 L, RBC 4.31, Hgb 13.0, Hct 37.7, MCV 87.5, MCH 30.2, MCHC 34.5, RDW 13.4, Plt Count 194, MPV 9.9, Neut % (Auto) 71.1, Lymph % (Auto) 20.0, [place] % (Auto) 6.5, Eos % (Auto) 0.4, Baso % (Auto) 0.8, Neut # (Auto) 1.9, Lymph # (Auto) 0.5 L, [place] # (Auto) 0.2, Eos # (Auto) 0.0, Baso # (Auto) 0.0, Total Counted 100, Neutrophils % (Manual) 51, Band Neutrophils % 9 H, Lymphocytes % (Manual) 29, Monocytes % (Manual) 11 H, D-Dimer 4.76 H, Sodium 132 L, Potassium 3.7, Chloride 99, Carbon Dioxide 27, Anion Gap 9.7, BUN 9, Creatinine 0.70, Estimated Creat Clear 104, Estimated GFR 87, Est GFR ( Amer) 105, Glucose 107 H, Calcium 8.9, Total Bilirubin 0.3, AST 89 H, ALT 59, Alkaline Phosphatase 102, Troponin I < 0.01, Total Protein 6.4, Albumin 3.8, Globulin 2.6, Albumin/Globulin Ratio 1.5 Orders (Tests/Meds): ED MEDICATIONS Discontinued Medications Generic Name Dose Route Start Last Admin Trade Name Freq PRN Reason Stop Dose Admin Acetaminophen 1,000 mg 01/22/25 20:16 01/22/25 20:23 Acetaminophen 500mg Tab PO 01/22/25 20:17 1,000 mg ONCE ONE Administration Albuterol/Ipratropium 3 ml 01/22/25 20:47 01/22/25 22:17 Ipratropium/Albuterol 3 Ml Neb IH 01/22/25 20:48 3 ml ONCE ONE Administration Dexamethasone Sodium Phosphate 10 mg 01/22/25 20:52 01/22/25 21:02 Dexamethasone 4mg/Ml 1ml Vial IV 01/22/25 20:53 10 mg ONCE ONE Administration Ibuprofen 800 mg 01/22/25 20:22 01/22/25 20:24 Ibuprofen 800 Mg Tablet PO 01/22/25 20:23 800 mg ONCE ONE Administration Iopamidol 80 ml 01/22/25 22:30 01/22/25 22:31 Iopamidol-370 (76%);100ml Bottle IV 01/22/25 22:31 80 ml ONCE ONE Administration Sodium Chloride 50 ml 01/22/25 22:30 01/22/25 22:30 0.9 % Sodium Chloride 50 Ml Vial IV 01/22/25 22:31 50 ml ONCE ONE Administration Sodium Chloride 10 ml 01/22/25 22:30 01/22/25 22:31 Sodium Chloride 0.9% 10ml Syr (Rad Only) IV 02/21/25 22:29 10 ml NEEDED PRN Administration Maintain IV Site ORDERS Category Date Time Status CT angio chest PE protocol Stat Cat Scan 01/22/25 21:54 Completed Chest XR 2 view (NOT portable) [XR chest 2V] Stat Exams 01/22/25 20:23 Completed CBC w/Auto Diff [Complete Blood Count Auto Diff] Stat Lab 01/22/25 20:53 Completed CMP [Comprehensive Metabolic Panel] Stat Lab 01/22/25 20:53 Completed D-Dimer Stat Lab 01/22/25 20:53 Completed Rapid PCR Covid and Flu A/B Stat Lab 01/22/25 20:05 Completed Trop I [Troponin I] Stat Lab 01/22/25 20:53 Completed Medical Decision Narrative: In summary patient is a 54-year-old who presents the emergency department for evaluation of cough and fever. Patient is hemodynamically upon arrival, febrile. Unremarkable physical exam. Differential diagnosis includes pneumonia, viral respiratory infection, bronchitis, pulmonary embolism. Initial workup will be conducted with chest x-ray, COVID flu swab, labs, D-dimer, troponin, EKG. Initial inventions include Tylenol and ibuprofen. Initial workup reviewed by me D-dimer significantly elevated, chest x-ray and other labs are unremarkable. CTA ordered. Patient signed out to Dr. Roy pending CTA results. Dr. Roy, DO Patient CTA was reviewed and interpreted by myself and showed no acute pathology. Patient was given a DuoNeb and dexamethasone in the emergency department and patient had improvement in her symptoms. At this time I feel the patient was stable for discharge home. Patient was sent for few days of prednisone for symptoms. Return precautions were discussed and patient was otherwise discharged home in stable condition. Critical Care <SUZETTE Duran - Last Filed: 01/22/25 22:32> Critical Care Time Critical Care Time: No
[2025-01-22] MEDS: DEXAMETHASONE 4MG/ML 1ML VIAL 10 MG IV (21:02)
[2025-01-22 21:03] LABS: Hematocrit 37.7 % (37.0-47.0); Hemoglobin 13.0 g/dL (12.2-16.2); Immature Granulocytes % 1.2 %; Mean Corpuscular HGB Conc 34.5 g/dL (31.8-35.4); Mean Corpuscular Hemoglobin 30.2 pg (27.0-31.2); Mean Corpuscular Volume 87.5 fl (81-99); Nucleated Red Blood Cells % 0 %; Platelet Count 194 K/mm3 (142-424); Red Blood Count 4.31 M/mm3 (4.20-5.40); Red Cell Distribution Width-SD 43.0 fL; White Blood Count 2.6 K/mm3 (4.8-10.8)
[2025-01-22 21:09] LABS: Coronavirus 19, PCR Not Detected (NotDetected); Influenza A, PCR Not Detected (NotDetected); Influenza B, PCR Not Detected (NotDetected)
[2025-01-22 21:23] LABS: Alanine Aminotransferase 59 U/L (12-78); Albumin Level 3.8 g/dl (3.5-5.0); Albumin/Globulin Ratio 1.5 (1.1-1.8); Alkaline Phosphatase 102 U/L (38-126); Anion Gap 9.7 mEq/L (5-15); Aspartate Amino Transferase 89 U/L (14-36); Bilirubin,Total 0.3 mg/dl (0.2-1.3); Blood Urea Nitrogen 9 mg/dl (7-17); Calcium 8.9 mg/dl (8.4-10.2); Carbon Dioxide 27 mmol/L (22.0-30.0); Chloride 99 mmol/L (98-107); Creatinine Clearance Estimated 104 mL/min (50-200); Creatinine,Serum 0.70 mg/dl (0.52-1.04); Estimated Glomerular Filt Rate 87 ml/min (>60); GFR (African American) 105 ML/MIN (>60); Globulin 2.6 g/dL (1.3-3.2); Glucose 107 mg/dl (74-100); Potassium 3.7 mmoL/L (3.5-5.1); Sodium 132 mmol/L (136-145); Total Protein,Serum 6.4 g/dl (6.3-8.2)
[2025-01-22 21:27] LABS: D-Dimer 4.76 ug/mL (0.0-0.5)
[2025-01-22 21:39] LABS: Troponin I < 0.01 ng/ml (0.00-0.034)
[2025-01-22 21:43] LABS: Total Cells Counted 100
--- NOTE | 2025-01-22 21:54 | CT_ITS ---
PROCEDURE INFORMATION: Exam: CTA Chest With Contrast Exam date and time: 01/22/2025 10:23 PM Age: 54 years old Clinical indication: Abnormal findings; Abnormal diagnostic tests; Elevated d-dimer; Orthopnea (sob when lying down); Additional info: Shortness of breath, elevated d-dimer TECHNIQUE: Imaging protocol: Computed tomographic angiography of the chest with contrast. Exam focused on the arteries. 3D rendering (Not supervised by radiologist): MIP and/or 3D reconstructed images were created by the technologist. Radiation optimization: All CT scans at this facility use at least one of these dose optimization techniques: automated exposure control; mA and/or kV adjustment per patient size (includes targeted exams where dose is matched to clinical indication); or iterative reconstruction. Contrast material: ISOUVE 370; Contrast volume: 80 ml; Contrast route: INTRAVENOUS (IV); COMPARISON: CR XR CHEST 2V 01/22/2025 8:22 PM FINDINGS: Tubes, catheters and devices: Spinal stimulator in place. Pulmonary arteries: Normal. No pulmonary emboli. Aorta: Unremarkable. No aortic aneurysm. No aortic dissection. Lungs: Unremarkable. No consolidation. No masses. Pleural spaces: Unremarkable. No pneumothorax. No pleural effusion. Heart: Unremarkable. No cardiomegaly. No pericardial effusion. Lymph nodes: Unremarkable. No enlarged lymph nodes. Bones/joints: Unremarkable. No acute fracture. Soft tissues: Unremarkable. IMPRESSION: No evidence for a pulmonary embolism, aortic dissection, aortic aneurysm, or underlying pneumonia.
[2025-01-22] MEDS: IPRATROPIUM/ALBUTEROL 3 ML NEB IH (22:17)
[2025-01-22] MEDS: 0.9 % SODIUM CHLORIDE 50 ML VIAL IV (22:30)
[2025-01-22] MEDS: IOPAMIDOL-370 (76%);100ML BOTTLE 80 ML IV (22:31)
[2025-01-22] MEDS: SODIUM CHLORIDE 0.9% 10ML SYR (RAD ONLY) 10 ML IV (22:31)
== END 2025-01-22 23:27 | disposition home or self-care (01) ==
PROVIDERS: Physician Assistant; Emergency Provider Student in an Organized Health Care Education/Training Program; PCP Pediatrics
DX: R07.89 Other chest pain (principal); R09.81 Nasal congestion; R09.89 Other specified symptoms and signs involving the circulatory and respiratory systems
CPT/HCPCS: 71046; 71275; 80053; 84484; 85007; 85025; 85027; 85378; 87636; 96374; 99285; J1100; Q9967